=== PATIENT | female | born 1945 | race Caucasian/White ===

== ENCOUNTER 2017-02-04 21:05 | Observation (INO) | payer MEDICARE, OTHER ==
[~2017-02-04] VITALS: Ht 152.4 cm; Wt 53.2 kg
[~2017-02-04 21:05] MED LIST: ABAT250V; ACET325 PO; ASPI81CH PO; CITA20; CITA20 PO; CLON.2 PO; Citalopram HBr20 MG PO; HYDCHL25 PO; LEVO750 PO; LIDO700A20 TOP; LISI5 PO; LOSARTAN POTASS25 MG PO; METCAR500 PO; METO100ER PO; MIRT15ST MM; NICO14TP TOP; NICO21TP TOP; Omeprazole20 M1 PO; PARO10 PO; PREG75; PREG75 PO; PROM25 PO; TRAM50 PO; Ventolin/Prove6.7 GM INH; Zofran Odt8 MG SL; Zofran4 MG PO
[2017-02-04 21:32] LABS: BASOPHILS ABSOLUTE AUTO 0.03 K/mm3 (0.00-0.23); BASOPHILS PERCENT AUTO 0 % (0-2); EOSINOPHILS PERCENT AUTO 0 % (0-6); Hematocrit 35.8 % (33.0-51.0); Hemoglobin 12.1 g/dL (11.5-16.0); IMMATURE GRAN ABSOLUTE AUTO 0.02 K/mm3 (0.00-0.10); IMMATURE GRAN PERCENT AUTO 0 % (0-1); LYMPHOCYTES ABSOLUTE AUTO 1.05 K/mm3 (0.84-5.20); LYMPHOCYTES PERCENT AUTO 10 % (21-46); MONOCYTES ABSOLUTE AUTO 0.57 K/mm3 (0.16-1.47); MONOCYTES PERCENT AUTO 5 % (4-13); Mean Corpuscular HGB 31.3 pg (26.0-34.0); Mean Corpuscular HGB Conc 33.8 g/dL (31.5-36.5); Mean Corpuscular Volume 93 fL (80-100); Mean Platelet Volume 9.4 fL (9.1-12.4); NEUTROPHILS ABSOLUTE AUTO 9.08 K/mm3 (1.96-9.15); NEUTROPHILS PERCENT AUTO 84 % (41-73); Platelet Count 364 K/mm3 (150-400); RDW Coefficient Variation 14.1 % (11.7-14.2); RDW Standard Deviation 47.8 fL (35.1-46.3); Red Blood Cell Count 3.86 M/mm3 (3.80-5.20); White Blood Cell Count 10.75 K/mm3 (4.00-11.30)
[2017-02-04 21:50] LABS: Alanine Aminotransfer (ALT/SGP 25 U/L (12-78); Albumin, Blood 4.1 g/dL (3.4-5.0); Albumin/Globulin Ratio 0.9 (0.8-1.8); Alk Phos 137 U/L (50-136); Anion Gap 21 mmol/L (6-16); Aspartate Aminotrans (AST/SGOT 41 U/L (12-37); Bilirubin, Total 0.6 mg/dL (0.1-1.0); Blood Urea Nitrogen 35 mg/dL (8-24); Bun/Creatinine Ratio 25.2 (12.0-20.0); CO2, Blood 17 mmol/L (21-32); Calcium, Blood 9.7 mg/dL (8.5-10.1); Chloride, Blood 97 mmol/L (98-108); Creatinine, Blood 1.39 mg/dL (0.40-1.00); Globulin, Blood 4.4 g/dL (2.2-4.0); Glomerular Filtration Rate 40 (60-); Glucose, Blood 268 mg/dL (70-99); Potassium, Blood 4.3 mmol/L (3.5-5.5); Sodium, Blood 135 mmol/L (136-145); Total Protein, Blood 8.5 g/dL (6.4-8.2)
[2017-02-04 23:28] LABS: Troponin I <0.015 ng/mL (0.000-0.040)
[2017-02-05] MEDS ORDERED: [UNRECOGNIZED DRUG - CODE] PO (00:54)
[2017-02-05] MEDS ORDERED: [UNRECOGNIZED DRUG - CODE] (00:55)
[2017-02-05] MEDS ORDERED: [UNRECOGNIZED DRUG - CODE] (00:59)
[2017-02-05] MEDS ORDERED: [UNRECOGNIZED DRUG - CODE] PO (01:01)
[2017-02-05] MEDS ORDERED: MIRT30 PO (01:28)
[2017-02-05] MEDS ORDERED: PREG100 PO (01:29)
[2017-02-05] MEDS ORDERED: CLON.1 PO (01:29)
[2017-02-05 04:49] LABS: Hematocrit 29.6 % (33.0-51.0); Hemoglobin 9.9 g/dL (11.5-16.0); Mean Corpuscular HGB 30.8 pg (26.0-34.0); Mean Corpuscular HGB Conc 33.4 g/dL (31.5-36.5); Mean Corpuscular Volume 92 fL (80-100); Mean Platelet Volume 9.5 fL (9.1-12.4); Platelet Count 271 K/mm3 (150-400); RDW Coefficient Variation 13.8 % (11.7-14.2); RDW Standard Deviation 46.6 fL (35.1-46.3); Red Blood Cell Count 3.21 M/mm3 (3.80-5.20); White Blood Cell Count 10.48 K/mm3 (4.00-11.30)
[2017-02-05 05:20] LABS: Magnesium, Blood 1.7 mg/dL (1.6-2.4)
[2017-02-05 05:21] LABS: Bun/Creatinine Ratio 28.6 (12.0-20.0); Creatinine, Blood 1.19 mg/dL (0.40-1.00); Potassium, Blood 4.4 mmol/L (3.5-5.5)
[2017-02-05 05:52] LABS: Calcium, Blood 8.4 mg/dL (8.5-10.1)
[2017-02-06] MEDS ORDERED: HYDCHL25 PO (10:58)
[2017-02-06] MEDS ORDERED: LIDO700A20 TOP (10:59)
[2017-02-06] MEDS ORDERED: ONDA4ODT MM (11:02)
[2017-02-06] MEDS ORDERED: ALUM-MAG HYDRO360 ML PO (11:03)
[2017-02-06 11:16] LABS: U Amphetamine Screen Not Detected; U Barbituate Screen Not Detected; U Benzodiazapine Screen DETECTED; U Buprenorphine Screen Not Detected; U Cannabinoids Screen DETECTED; U Cocaine Screen Not Detected; U Methadone Screen Not Detected; U Methamphetamine Screen Not Detected; U Opiates Screen Not Detected; U Oxycodone Screen Not Detected; U Phencyclidine Screen Not Detected; U Propoxyphene Screen Not Detected
[2017-08-07] MEDS ORDERED: ANORO ELLIPTA1 EACH INH (15:48)
[2017-08-07] MEDS ORDERED: Carafate1 GM/10 ML PO (17:23)
[2017-08-07] MEDS ORDERED: Protonix40 MG PO (17:23)
[2017-08-07] MEDS ORDERED: PROM25 PO (17:23)
[2017-08-07] MEDS ORDERED: Ultram50 MG PO (17:24)
[2017-11-17] MEDS ORDERED: Zofran4 MG PO (08:52)
== END 2017-02-06 12:42 | disposition home or self-care (01) ==
LOC: ER 21:05 → MEDS 21:06 → ER 02-05 01:03 → MEDS 02-05 01:07 → ENPENDDIS 02-06 10:04 → MEDS 02-06 12:42
PROVIDERS: Emergency Medicine; Family Medicine
DX: K52.9 Noninfective gastroenteritis and colitis, unspecified (principal); R73.9 Hyperglycemia, unspecified; E86.0 Dehydration; N17.9 Acute kidney failure, unspecified; E11.9 Type 2 diabetes mellitus without complications; F32.9 Major depressive disorder, single episode, unspecified; F41.9 Anxiety disorder, unspecified; F12.10 Cannabis abuse, uncomplicated; F17.210 Nicotine dependence, cigarettes, uncomplicated; I10 Essential (primary) hypertension; R00.0 Tachycardia, unspecified; J44.9 Chronic obstructive pulmonary disease, unspecified; E78.00 Pure hypercholesterolemia, unspecified; Z90.49 Acquired absence of other specified parts of digestive tract; Z98.890 Other specified postprocedural states; Z88.8 Allergy status to other drugs, medicaments and biological substances; Z88.5 Allergy status to narcotic agent; Z79.891 Long term (current) use of opiate analgesic; Z79.899 Other long term (current) drug therapy
CPT/HCPCS: 36415; 80048; 80053; 82947; 83036; 83605; 83690; 83735; 84100; 84484; 85025; 85027; 93005; 93010; 94640; 94762; 96361; 96372; 96374; 96375; 96376; 99285; G0378; J0360; J1630; J1650; J2060; J2405; J2550; J3411; J3475; J7030; J7042

== ENCOUNTER 2017-04-05 09:55 | Observation (INO) | payer MEDICARE, OTHER ==
[~2017-04-05] VITALS: Ht 152.4 cm; Wt 51.4 kg
[~2017-04-05 09:55] MED LIST changes: +ALUM-MAG HYDRO360 ML PO; +CLON.1 PO; +MIRT30 PO; +ONDA4ODT MM; +PREG100 PO; +[UNRECOGNIZED DRUG - CODE]; +[UNRECOGNIZED DRUG - CODE]; +[UNRECOGNIZED DRUG - CODE] PO; +[UNRECOGNIZED DRUG - CODE] PO
[2017-04-05] MEDS ORDERED: CITA20 PO (10:06)
[2017-04-05] MEDS ORDERED: LISI20 PO (10:06)
[2017-04-05 10:21] LABS: BASOPHILS ABSOLUTE AUTO 0.03 K/mm3 (0.00-0.23); BASOPHILS PERCENT AUTO 0 % (0-2); EOSINOPHILS PERCENT AUTO 0 % (0-6); Hematocrit 30.9 % (33.0-51.0); Hemoglobin 10.1 g/dL (11.5-16.0); IMMATURE GRAN ABSOLUTE AUTO 0.02 K/mm3 (0.00-0.10); IMMATURE GRAN PERCENT AUTO 0 % (0-1); LYMPHOCYTES ABSOLUTE AUTO 0.72 K/mm3 (0.84-5.20); LYMPHOCYTES PERCENT AUTO 10 % (21-46); MONOCYTES ABSOLUTE AUTO 0.73 K/mm3 (0.16-1.47); MONOCYTES PERCENT AUTO 10 % (4-13); Mean Corpuscular HGB 29.4 pg (26.0-34.0); Mean Corpuscular HGB Conc 32.7 g/dL (31.5-36.5); Mean Corpuscular Volume 90 fL (80-100); Mean Platelet Volume 9.6 fL (9.1-12.4); NEUTROPHILS ABSOLUTE AUTO 5.53 K/mm3 (1.96-9.15); NEUTROPHILS PERCENT AUTO 79 % (41-73); Platelet Count 315 K/mm3 (150-400); RDW Coefficient Variation 14.4 % (11.7-14.2); RDW Standard Deviation 46.7 fL (35.1-46.3); Red Blood Cell Count 3.43 M/mm3 (3.80-5.20); White Blood Cell Count 7.03 K/mm3 (4.00-11.30)
[2017-04-05 10:40] LABS: Albumin, Blood 3.3 g/dL (3.4-5.0); Albumin/Globulin Ratio 0.9 (0.8-1.8); Bilirubin, Total 0.6 mg/dL (0.1-1.0); Bun/Creatinine Ratio 14.7 (12.0-20.0); Calcium, Blood 8.4 mg/dL (8.5-10.1); Creatinine, Blood 1.09 mg/dL (0.40-1.00); Globulin, Blood 3.6 g/dL (2.2-4.0); Potassium, Blood 3.3 mmol/L (3.5-5.5); Total Protein, Blood 6.9 g/dL (6.4-8.2)
[2017-04-05 11:16] LABS: International Normalized Ratio 1.17; Prothrombin Time Results 12.2 Sec (9.7-11.5)
[2017-04-05 16:02] LABS: Hematocrit 30.8 % (33.0-51.0)
[2017-04-05 20:54] LABS: Hematocrit 30.1 % (33.0-51.0); Hemoglobin 9.7 g/dL (11.5-16.0)
[2017-04-06 05:14] LABS: Alanine Aminotransfer (ALT/SGP 20 U/L (12-78); Albumin, Blood 3.3 g/dL (3.4-5.0); Alk Phos 108 U/L (50-136); Anion Gap 12 mmol/L (6-16); Aspartate Aminotrans (AST/SGOT 25 U/L (12-37); Bilirubin, Total 0.5 mg/dL (0.1-1.0); Blood Urea Nitrogen 9 mg/dL (8-24); Bun/Creatinine Ratio 9.5 (12.0-20.0); CO2, Blood 23 mmol/L (21-32); Calcium, Blood 7.8 mg/dL (8.5-10.1); Chloride, Blood 108 mmol/L (98-108); Creatinine, Blood 0.95 mg/dL (0.40-1.00); Globulin, Blood 3.4 g/dL (2.2-4.0); Glomerular Filtration Rate >60 (60-); Glucose, Blood 68 mg/dL (70-99); Magnesium, Blood 1.3 mg/dL (1.6-2.4); Sodium, Blood 143 mmol/L (136-145); Total Protein, Blood 6.7 g/dL (6.4-8.2)
[2017-04-06 05:40] LABS: BASOPHILS ABSOLUTE AUTO 0.04 K/mm3 (0.00-0.23); BASOPHILS PERCENT AUTO 1 % (0-2); EOSINOPHILS ABSOLUTE AUTO 0.04 K/mm3 (0.00-0.68); EOSINOPHILS PERCENT AUTO 1 % (0-6); Hemoglobin 9.5 g/dL (11.5-16.0); IMMATURE GRAN ABSOLUTE AUTO 0.02 K/mm3 (0.00-0.10); IMMATURE GRAN PERCENT AUTO 0 % (0-1); LYMPHOCYTES ABSOLUTE AUTO 3.46 K/mm3 (0.84-5.20); LYMPHOCYTES PERCENT AUTO 44 % (21-46); MONOCYTES ABSOLUTE AUTO 0.66 K/mm3 (0.16-1.47); MONOCYTES PERCENT AUTO 8 % (4-13); Mean Corpuscular HGB 29.6 pg (26.0-34.0); Mean Corpuscular HGB Conc 31.7 g/dL (31.5-36.5); Mean Platelet Volume 9.9 fL (9.1-12.4); NEUTROPHILS ABSOLUTE AUTO 3.71 K/mm3 (1.96-9.15); NEUTROPHILS PERCENT AUTO 47 % (41-73); Platelet Count 240 K/mm3 (150-400); RDW Coefficient Variation 14.9 % (11.7-14.2); RDW Standard Deviation 50.9 fL (35.1-46.3); Red Blood Cell Count 3.21 M/mm3 (3.80-5.20); White Blood Cell Count 7.93 K/mm3 (4.00-11.30)
[2017-04-06 05:42] LABS: Mean Corpuscular Volume 94 fL (80-100)
[2017-04-06] MEDS ORDERED: MAGOXI400 PO (14:21)
[2017-04-06] MEDS ORDERED: POTCHL10ER PO (14:22)
[2017-04-06] MEDS ORDERED: PANT40 PO (14:22)
[2017-08-07] MEDS ORDERED: ANORO ELLIPTA1 EACH INH (15:48)
[2017-08-07] MEDS ORDERED: Protonix40 MG PO (17:23)
[2017-08-07] MEDS ORDERED: Carafate1 GM/10 ML PO (17:23)
[2017-08-07] MEDS ORDERED: PROM25 PO (17:23)
[2017-08-07] MEDS ORDERED: Ultram50 MG PO (17:24)
[2017-11-17] MEDS ORDERED: Zofran4 MG PO (08:52)
== END 2017-04-06 15:26 | disposition home or self-care (01) ==
LOC: ER 09:55 → MEDS 09:56 → ER 13:49 → MEDS 13:49 → ENPENDDIS 04-06 10:00 → MEDS 04-06 15:26
PROVIDERS: Emergency Medicine; Internal Medicine; Internal Medicine Gastroenterology
PROC: 0DB68ZX Excision of Stomach, Via Natural or Artificial Opening Endoscopic, Diagnostic (ICD-10-PCS; principal; 2017-04-06 09:00)
DX: K92.1 Melena (principal); K70.9 Alcoholic liver disease, unspecified; I10 Essential (primary) hypertension; E87.6 Hypokalemia; E86.0 Dehydration; J43.9 Emphysema, unspecified; F10.10 Alcohol abuse, uncomplicated; M79.7 Fibromyalgia; E78.5 Hyperlipidemia, unspecified; F17.200 Nicotine dependence, unspecified, uncomplicated; K85.90 Acute pancreatitis without necrosis or infection, unspecified; Z79.899 Other long term (current) drug therapy; Z88.5 Allergy status to narcotic agent; Z88.8 Allergy status to other drugs, medicaments and biological substances; Z90.49 Acquired absence of other specified parts of digestive tract; Z98.890 Other specified postprocedural states
CPT/HCPCS: 36415; 74177; 80053; 82272; 83690; 83735; 85014; 85018; 85025; 85610; 85730; 86850; 86900; 86901; 88305; 88342; 93005; 93010; 96361; 96374; 96375; 96376; 99285; C9113; G0378; J1170; J2405; J3010; J3475; J3480; J7030; J7040; J7120; Q9967

== ENCOUNTER 2017-05-10 12:17 | Observation (INO) | payer MEDICARE ==
[~2017-05-10] VITALS: Ht 154.9 cm; Wt 50.8 kg
[~2017-05-10 12:17] MED LIST changes: +LISI20 PO; +MAGOXI400 PO; +PANT40 PO; +POTCHL10ER PO
[2017-05-10 12:48] LABS: BASOPHILS ABSOLUTE AUTO 0.02 K/mm3 (0.00-0.23); BASOPHILS PERCENT AUTO 0 % (0-2); EOSINOPHILS PERCENT AUTO 0 % (0-6); Hematocrit 36.3 % (33.0-51.0); Hemoglobin 11.4 g/dL (11.5-16.0); IMMATURE GRAN ABSOLUTE AUTO 0.05 K/mm3 (0.00-0.10); IMMATURE GRAN PERCENT AUTO 1 % (0-1); LYMPHOCYTES PERCENT AUTO 12 % (21-46); MONOCYTES ABSOLUTE AUTO 0.64 K/mm3 (0.16-1.47); MONOCYTES PERCENT AUTO 7 % (4-13); Mean Corpuscular HGB 28.6 pg (26.0-34.0); Mean Corpuscular HGB Conc 31.4 g/dL (31.5-36.5); Mean Corpuscular Volume 91 fL (80-100); Mean Platelet Volume 10.5 fL (9.1-12.4); NEUTROPHILS ABSOLUTE AUTO 7.35 K/mm3 (1.96-9.15); NEUTROPHILS PERCENT AUTO 80 % (41-73); Platelet Count 318 K/mm3 (150-400); RDW Coefficient Variation 15.1 % (11.7-14.2); RDW Standard Deviation 50.3 fL (35.1-46.3); Red Blood Cell Count 3.98 M/mm3 (3.80-5.20); White Blood Cell Count 9.16 K/mm3 (4.00-11.30)
[2017-05-10 13:09] LABS: Alanine Aminotransfer (ALT/SGP 15 U/L (12-78); Albumin, Blood 3.9 g/dL (3.4-5.0); Albumin/Globulin Ratio 0.9 (0.8-1.8); Alk Phos 97 U/L (50-136); Anion Gap 15 mmol/L (6-16); Aspartate Aminotrans (AST/SGOT 22 U/L (12-37); Bilirubin, Total 0.9 mg/dL (0.1-1.0); Blood Urea Nitrogen 37 mg/dL (8-24); Bun/Creatinine Ratio 29.4 (12.0-20.0); CO2, Blood 22 mmol/L (21-32); Calcium, Blood 9.1 mg/dL (8.5-10.1); Chloride, Blood 101 mmol/L (98-108); Creatinine, Blood 1.26 mg/dL (0.40-1.00); Globulin, Blood 4.2 g/dL (2.2-4.0); Glomerular Filtration Rate 45 (60-); Glucose, Blood 158 mg/dL (70-99); Potassium, Blood 3.7 mmol/L (3.5-5.5); Sodium, Blood 138 mmol/L (136-145); Total Protein, Blood 8.1 g/dL (6.4-8.2)
[2017-05-10 13:27] LABS: Ethanol (Alcohol), Blood, Med <3 mg/dL
[2017-05-10 13:28] LABS: Source, Urine Clean Catch
[2017-05-10 13:32] LABS: Appearance, Urine Clear (Clear); Blood, Urine 1+ (Neg); Color, Urine Yellow (P-Yellow); Glucose Qualitative, Urine Neg (Neg); Ketones, Urine 3+ (Neg); Leukocyte Esterase, Urine Neg (Neg); Nitrite, Urine Neg (Neg); Protein, Urine 3+ (Neg); Specific Gravity, Urine 1.025 (1.003-1.022); Urobilinogen, Urine 1+ (Normal)
[2017-05-10 13:38] LABS: Bilirubin, Urine 1+ (Neg)
[2017-05-10 13:39] LABS: Bacteria Few /hpf; Red Blood Cells, Urine 0-2 /hpf (0-2); Squamous Epithelial Cells Many /hpf (Few); White Blood Cells, Urine Not Seen /hpf (0-5)
[2017-05-10 13:43] LABS: Troponin I <0.015 ng/mL (0.000-0.040)
[2017-05-11 05:31] LABS: Bun/Creatinine Ratio 30.4 (12.0-20.0); Calcium, Blood 8.2 mg/dL (8.5-10.1); Creatinine, Blood 1.15 mg/dL (0.40-1.00)
[2017-05-12 04:54] LABS: BASOPHILS ABSOLUTE AUTO 0.06 K/mm3 (0.00-0.23); BASOPHILS PERCENT AUTO 1 % (0-2); EOSINOPHILS ABSOLUTE AUTO 0.32 K/mm3 (0.00-0.68); EOSINOPHILS PERCENT AUTO 3 % (0-6); Hematocrit 31.6 % (33.0-51.0); IMMATURE GRAN ABSOLUTE AUTO 0.06 K/mm3 (0.00-0.10); IMMATURE GRAN PERCENT AUTO 1 % (0-1); LYMPHOCYTES ABSOLUTE AUTO 3.99 K/mm3 (0.84-5.20); LYMPHOCYTES PERCENT AUTO 33 % (21-46); MONOCYTES ABSOLUTE AUTO 0.94 K/mm3 (0.16-1.47); MONOCYTES PERCENT AUTO 8 % (4-13); Mean Corpuscular HGB 28.5 pg (26.0-34.0); Mean Corpuscular HGB Conc 31.6 g/dL (31.5-36.5); Mean Corpuscular Volume 90 fL (80-100); NEUTROPHILS ABSOLUTE AUTO 6.84 K/mm3 (1.96-9.15); NEUTROPHILS PERCENT AUTO 56 % (41-73); Platelet Count 252 K/mm3 (150-400); RDW Coefficient Variation 15.6 % (11.7-14.2); RDW Standard Deviation 50.7 fL (35.1-46.3); Red Blood Cell Count 3.51 M/mm3 (3.80-5.20); White Blood Cell Count 12.21 K/mm3 (4.00-11.30)
[2017-05-12 05:15] LABS: Bun/Creatinine Ratio 24.4 (12.0-20.0); Calcium, Blood 7.9 mg/dL (8.5-10.1); Creatinine, Blood 1.23 mg/dL (0.40-1.00); Magnesium, Blood 1.4 mg/dL (1.6-2.4); Potassium, Blood 3.4 mmol/L (3.5-5.5)
[2017-05-12] MEDS ORDERED: Donnatal E16.2 MG/5 (11:12)
[2017-05-12] MEDS ORDERED: Lyrica100 MG PO (11:20)
[2017-05-12] MEDS ORDERED: POTCHL10ER PO (11:21)
[2017-05-12] MEDS ORDERED: ALBU90OI INH (11:22)
[2017-05-12] MEDS ORDERED: PANT40 PO (11:28)
[2017-05-12] MEDS ORDERED: TRAM50 (11:30)
[2017-05-12] MEDS ORDERED: Zofran Odt4 MG PO (11:32)
[2017-05-12] MEDS ORDERED: MAGOXI400 PO (11:34)
[2017-05-12] MEDS ORDERED: TIOT18 INH (11:36)
== END 2017-05-12 16:41 | disposition home or self-care (01) ==
LOC: ER 12:17 → MEDS 12:18 → ENPENDDIS 05-12 09:00 → MEDS 05-12 16:41
PROVIDERS: Emergency Medicine; Internal Medicine
DX: E86.0 Dehydration (principal); N28.9 Disorder of kidney and ureter, unspecified; I16.0 Hypertensive urgency; E87.6 Hypokalemia; F10.10 Alcohol abuse, uncomplicated; K74.60 Unspecified cirrhosis of liver; F17.210 Nicotine dependence, cigarettes, uncomplicated; E78.00 Pure hypercholesterolemia, unspecified; R19.7 Diarrhea, unspecified; I10 Essential (primary) hypertension; F32.9 Major depressive disorder, single episode, unspecified; G89.29 Other chronic pain; M54.9 Dorsalgia, unspecified; M79.7 Fibromyalgia; K21.9 Gastro-esophageal reflux disease without esophagitis; J44.9 Chronic obstructive pulmonary disease, unspecified; E03.9 Hypothyroidism, unspecified; M19.90 Unspecified osteoarthritis, unspecified site; Z79.899 Other long term (current) drug therapy; Z82.49 Family history of ischemic heart disease and other diseases of the circulatory system; Z88.5 Allergy status to narcotic agent; Z88.8 Allergy status to other drugs, medicaments and biological substances; Z88.6 Allergy status to analgesic agent; Z87.11 Personal history of peptic ulcer disease; Y90.0 Blood alcohol level of less than 20 mg/100 ml
CPT/HCPCS: 36415; 71046; 80048; 80053; 81001; 82105; 82947; 83690; 83735; 84484; 85025; 94640; 94760; 96361; 96365; 96366; 96367; 96374; 96375; 96376; 97161; 97165; 97535; 99285; G0378; G0480; G8978; G8979; G8987; G8988; G8989; J2060; J2405; J3475; J7030; J7060; P9612

== ENCOUNTER 2017-09-17 07:40 | Inpatient (IN) | payer MEDICARE, OTHER ==
[~2017-09-17] VITALS: Ht 152.4 cm; Wt 50.6 kg
[~2017-09-17 07:40] MED LIST changes: +ALBU90OI INH; +ANORO ELLIPTA1 EACH INH; +Carafate1 GM/10 ML PO; +Donnatal E16.2 MG/5; +Lyrica100 MG PO; +Protonix40 MG PO; +TIOT18 INH; +TRAM50; +Ultram50 MG PO; +Zofran Odt4 MG PO
[2017-09-17 08:09] LABS: BASOPHILS ABSOLUTE AUTO 0.05 K/mm3 (0.00-0.23); BASOPHILS PERCENT AUTO 1 % (0-2); EOSINOPHILS ABSOLUTE AUTO 0.03 K/mm3 (0.00-0.68); EOSINOPHILS PERCENT AUTO 0 % (0-6); Hematocrit 35.4 % (33.0-51.0); Hemoglobin 11.6 g/dL (11.5-16.0); IMMATURE GRAN ABSOLUTE AUTO 0.03 K/mm3 (0.00-0.10); IMMATURE GRAN PERCENT AUTO 0 % (0-1); LYMPHOCYTES PERCENT AUTO 26 % (21-46); MONOCYTES ABSOLUTE AUTO 0.66 K/mm3 (0.16-1.47); MONOCYTES PERCENT AUTO 7 % (4-13); Mean Corpuscular HGB Conc 32.8 g/dL (31.5-36.5); Mean Corpuscular Volume 89 fL (80-100); Mean Platelet Volume 9.9 fL (9.1-12.4); NEUTROPHILS ABSOLUTE AUTO 5.82 K/mm3 (1.96-9.15); NEUTROPHILS PERCENT AUTO 66 % (41-73); Platelet Count 390 K/mm3 (150-400); RDW Coefficient Variation 16.8 % (11.7-14.2); RDW Standard Deviation 54.7 fL (35.1-46.3); White Blood Cell Count 8.89 K/mm3 (4.00-11.30)
[2017-09-17 08:26] LABS: Alanine Aminotransfer (ALT/SGP 22 U/L (12-78); Albumin, Blood 3.3 g/dL (3.4-5.0); Albumin/Globulin Ratio 0.7 (0.8-1.8); Alk Phos 134 U/L (50-136); Anion Gap 11 mmol/L (6-16); Aspartate Aminotrans (AST/SGOT 51 U/L (12-37); Bilirubin, Total 0.8 mg/dL (0.1-1.0); Blood Urea Nitrogen 12 mg/dL (8-24); Bun/Creatinine Ratio 10.6 (12.0-20.0); CO2, Blood 23 mmol/L (21-32); Calcium, Blood 7.8 mg/dL (8.5-10.1); Chloride, Blood 102 mmol/L (98-108); Creatinine, Blood 1.13 mg/dL (0.40-1.00); Globulin, Blood 4.6 g/dL (2.2-4.0); Glomerular Filtration Rate 51 (60-); Glucose, Blood 104 mg/dL (70-99); Potassium, Blood 4.8 mmol/L (3.5-5.5); Sodium, Blood 136 mmol/L (136-145); Total Protein, Blood 7.9 g/dL (6.4-8.2); Troponin I <0.015 ng/mL (0.000-0.040)
[2017-09-17 11:47] LABS: Source, Urine Clean Catch
[2017-09-17 11:54] LABS: Bilirubin, Urine Neg (Neg); Blood, Urine Neg (Neg); Glucose Qualitative, Urine Neg (Neg); Ketones, Urine 2+ (Neg); Leukocyte Esterase, Urine 1+ (Neg); Nitrite, Urine Neg (Neg); Protein, Urine Neg (Neg); Specific Gravity, Urine 1.005 (1.003-1.022); Urobilinogen, Urine NORM (Normal)
[2017-09-17 12:03] LABS: Appearance, Urine Clear (Clear); Bacteria Few /hpf; Color, Urine Yellow (P-Yellow); Red Blood Cells, Urine 0-2 /hpf (0-2); Squamous Epithelial Cells Few /hpf (Few); White Blood Cells, Urine 0-2 /hpf (0-5)
[2017-09-17] MEDS ORDERED: Prinivil10 MG PO (12:24)
[2017-09-17] MEDS ORDERED: METCAR500 PO (12:24)
[2017-09-17] MEDS ORDERED: METO50ER PO (12:25)
[2017-09-17] MEDS ORDERED: BUPR75 PO (12:29)
[2017-09-17 14:44] LABS: Ethanol (Alcohol), Blood, Med <3 mg/dL
[2017-09-18 04:11] LABS: Hematocrit 33.5 % (33.0-51.0); Hemoglobin 10.7 g/dL (11.5-16.0); Mean Corpuscular HGB 28.8 pg (26.0-34.0); Mean Corpuscular HGB Conc 31.9 g/dL (31.5-36.5); Mean Corpuscular Volume 90 fL (80-100); Mean Platelet Volume 10.1 fL (9.1-12.4); Platelet Count 348 K/mm3 (150-400); RDW Coefficient Variation 17.2 % (11.7-14.2); RDW Standard Deviation 56.2 fL (35.1-46.3); Red Blood Cell Count 3.72 M/mm3 (3.80-5.20); White Blood Cell Count 9.24 K/mm3 (4.00-11.30)
[2017-09-18 04:48] LABS: Bun/Creatinine Ratio 11.1 (12.0-20.0); Calcium, Blood 6.9 mg/dL (8.5-10.1); Creatinine, Blood 1.17 mg/dL (0.40-1.00); Potassium, Blood 3.5 mmol/L (3.5-5.5)
[2017-09-18 11:06] LABS: Adenovirus F 40/41 Not Detected (NOT DETECT); Astrovirus Not Detected (NOT DETECT); Campylobacter Sp Not Detected (NOT DETECT); Cryptosporidium Not Detected (NOT DETECT); Cyclospora Cayetanensis Not Detected (NOT DETECT); E. Coli O157 Not Detected (NOT DETECT); Entamoeba Histolytica Not Detected (NOT DETECT); Enteroaggregative E. coli-EAEC Not Detected (NOT DETECT); Enteropathogenic E. coli-EPEC Not Detected (NOT DETECT); Enterotoxigenic E. coli-ETEC Not Detected (NOT DETECT); Giardia Lamblia Not Detected (NOT DETECT); Norovirus GI/GII Not Detected (NOT DETECT); Plesiomonas Shigelloides Not Detected (NOT DETECT); Rotavirus A Not Detected (NOT DETECT); Salmonella Sp Not Detected (NOT DETECT); Sapovirus Not Detected (NOT DETECT); Shiga Toxin-prod E. coli-STEC Not Detected (NOT DETECT); Shigella/Enteroin E. coli-EIEC Not Detected (NOT DETECT); Vibrio Cholerae Not Detected (NOT DETECT); Vibrio Sp Not Detected (NOT DETECT); Yersinia Enterocolitica Not Detected (NOT DETECT)
[2017-09-19 05:51] LABS: Hematocrit 33.7 % (33.0-51.0); Mean Corpuscular HGB 29.8 pg (26.0-34.0); Mean Corpuscular HGB Conc 32.6 g/dL (31.5-36.5); Mean Corpuscular Volume 91 fL (80-100); Mean Platelet Volume 9.3 fL (9.1-12.4); Platelet Count 348 K/mm3 (150-400); RDW Coefficient Variation 16.9 % (11.7-14.2); RDW Standard Deviation 56.9 fL (35.1-46.3); Red Blood Cell Count 3.69 M/mm3 (3.80-5.20); White Blood Cell Count 8.16 K/mm3 (4.00-11.30)
[2017-09-19 06:09] LABS: Anion Gap 12 mmol/L (6-16); Blood Urea Nitrogen 10 mg/dL (8-24); Bun/Creatinine Ratio 10.5 (12.0-20.0); CO2, Blood 20 mmol/L (21-32); Calcium, Blood 6.6 mg/dL (8.5-10.1); Chloride, Blood 108 mmol/L (98-108); Creatinine, Blood 0.95 mg/dL (0.40-1.00); Glomerular Filtration Rate >60 (60-); Glucose, Blood 101 mg/dL (70-99); Potassium, Blood 3.9 mmol/L (3.5-5.5); Sodium, Blood 140 mmol/L (136-145)
[2017-09-20 05:12] LABS: Hematocrit 31.7 % (33.0-51.0); Hemoglobin 10.2 g/dL (11.5-16.0); Mean Corpuscular HGB 29.4 pg (26.0-34.0); Mean Corpuscular HGB Conc 32.2 g/dL (31.5-36.5); Mean Corpuscular Volume 91 fL (80-100); Mean Platelet Volume 9.6 fL (9.1-12.4); Platelet Count 332 K/mm3 (150-400); RDW Coefficient Variation 17.1 % (11.7-14.2); Red Blood Cell Count 3.47 M/mm3 (3.80-5.20)
[2017-09-20 05:29] LABS: Alanine Aminotransfer (ALT/SGP 17 U/L (12-78); Albumin, Blood 2.9 g/dL (3.4-5.0); Albumin/Globulin Ratio 0.8 (0.8-1.8); Alk Phos 86 U/L (50-136); Anion Gap 10 mmol/L (6-16); Aspartate Aminotrans (AST/SGOT 19 U/L (12-37); Bilirubin, Total 0.4 mg/dL (0.1-1.0); Blood Urea Nitrogen 18 mg/dL (8-24); Bun/Creatinine Ratio 19.5 (12.0-20.0); CO2, Blood 22 mmol/L (21-32); Chloride, Blood 108 mmol/L (98-108); Creatinine, Blood 0.92 mg/dL (0.40-1.00); Globulin, Blood 3.8 g/dL (2.2-4.0); Glomerular Filtration Rate >60 (60-); Glucose, Blood 86 mg/dL (70-99); Potassium, Blood 3.4 mmol/L (3.5-5.5); Sodium, Blood 140 mmol/L (136-145); Total Protein, Blood 6.7 g/dL (6.4-8.2)
[2017-09-21 04:50] LABS: Hematocrit 32.8 % (33.0-51.0); Hemoglobin 10.4 g/dL (11.5-16.0); Mean Corpuscular HGB 28.5 pg (26.0-34.0); Mean Corpuscular HGB Conc 31.7 g/dL (31.5-36.5); Mean Corpuscular Volume 90 fL (80-100); Mean Platelet Volume 9.8 fL (9.1-12.4); Platelet Count 328 K/mm3 (150-400); RDW Coefficient Variation 17.2 % (11.7-14.2); RDW Standard Deviation 55.7 fL (35.1-46.3); Red Blood Cell Count 3.65 M/mm3 (3.80-5.20); White Blood Cell Count 9.73 K/mm3 (4.00-11.30)
[2017-09-21 05:06] LABS: Anion Gap 10 mmol/L (6-16); Blood Urea Nitrogen 16 mg/dL (8-24); Bun/Creatinine Ratio 19.7 (12.0-20.0); CO2, Blood 22 mmol/L (21-32); Calcium, Blood 8.5 mg/dL (8.5-10.1); Chloride, Blood 110 mmol/L (98-108); Creatinine, Blood 0.81 mg/dL (0.40-1.00); Glomerular Filtration Rate >60 (60-); Glucose, Blood 78 mg/dL (70-99); Potassium, Blood 3.7 mmol/L (3.5-5.5); Sodium, Blood 142 mmol/L (136-145)
[2017-09-22 05:09] LABS: BASOPHILS ABSOLUTE AUTO 0.04 K/mm3 (0.00-0.23); BASOPHILS PERCENT AUTO 0 % (0-2); EOSINOPHILS ABSOLUTE AUTO 0.35 K/mm3 (0.00-0.68); EOSINOPHILS PERCENT AUTO 4 % (0-6); Hematocrit 32.7 % (33.0-51.0); Hemoglobin 10.5 g/dL (11.5-16.0); IMMATURE GRAN ABSOLUTE AUTO 0.04 K/mm3 (0.00-0.10); IMMATURE GRAN PERCENT AUTO 0 % (0-1); LYMPHOCYTES ABSOLUTE AUTO 3.84 K/mm3 (0.84-5.20); LYMPHOCYTES PERCENT AUTO 40 % (21-46); MONOCYTES PERCENT AUTO 8 % (4-13); Mean Corpuscular HGB 30.1 pg (26.0-34.0); Mean Corpuscular HGB Conc 32.1 g/dL (31.5-36.5); Mean Platelet Volume 9.5 fL (9.1-12.4); NEUTROPHILS ABSOLUTE AUTO 4.61 K/mm3 (1.96-9.15); NEUTROPHILS PERCENT AUTO 48 % (41-73); Platelet Count 314 K/mm3 (150-400); RDW Coefficient Variation 17.7 % (11.7-14.2); RDW Standard Deviation 60.3 fL (35.1-46.3); Red Blood Cell Count 3.49 M/mm3 (3.80-5.20); White Blood Cell Count 9.68 K/mm3 (4.00-11.30)
[2017-09-22 05:19] LABS: Mean Corpuscular Volume 94 fL (80-100)
[2017-09-22 05:27] LABS: Alanine Aminotransfer (ALT/SGP 23 U/L (12-78); Albumin, Blood 2.9 g/dL (3.4-5.0); Albumin/Globulin Ratio 0.8 (0.8-1.8); Alk Phos 77 U/L (50-136); Anion Gap 10 mmol/L (6-16); Aspartate Aminotrans (AST/SGOT 31 U/L (12-37); Bilirubin, Total 0.5 mg/dL (0.1-1.0); Blood Urea Nitrogen 13 mg/dL (8-24); Bun/Creatinine Ratio 13.9 (12.0-20.0); CO2, Blood 22 mmol/L (21-32); Calcium, Blood 7.9 mg/dL (8.5-10.1); Chloride, Blood 109 mmol/L (98-108); Creatinine, Blood 0.94 mg/dL (0.40-1.00); Globulin, Blood 3.7 g/dL (2.2-4.0); Glomerular Filtration Rate >60 (60-); Glucose, Blood 70 mg/dL (70-99); Magnesium, Blood 1.8 mg/dL (1.6-2.4); Potassium, Blood 3.6 mmol/L (3.5-5.5); Sodium, Blood 141 mmol/L (136-145); Total Protein, Blood 6.6 g/dL (6.4-8.2)
[2017-09-23 05:19] LABS: BASOPHILS ABSOLUTE AUTO 0.05 K/mm3 (0.00-0.23); BASOPHILS PERCENT AUTO 0 % (0-2); EOSINOPHILS ABSOLUTE AUTO 0.51 K/mm3 (0.00-0.68); EOSINOPHILS PERCENT AUTO 5 % (0-6); Hematocrit 33.6 % (33.0-51.0); Hemoglobin 10.6 g/dL (11.5-16.0); IMMATURE GRAN ABSOLUTE AUTO 0.06 K/mm3 (0.00-0.10); IMMATURE GRAN PERCENT AUTO 1 % (0-1); LYMPHOCYTES ABSOLUTE AUTO 3.74 K/mm3 (0.84-5.20); LYMPHOCYTES PERCENT AUTO 33 % (21-46); MONOCYTES ABSOLUTE AUTO 0.97 K/mm3 (0.16-1.47); MONOCYTES PERCENT AUTO 9 % (4-13); Mean Corpuscular HGB 29.2 pg (26.0-34.0); Mean Corpuscular HGB Conc 31.5 g/dL (31.5-36.5); Mean Corpuscular Volume 93 fL (80-100); Mean Platelet Volume 9.8 fL (9.1-12.4); NEUTROPHILS ABSOLUTE AUTO 5.89 K/mm3 (1.96-9.15); NEUTROPHILS PERCENT AUTO 53 % (41-73); Platelet Count 357 K/mm3 (150-400); RDW Coefficient Variation 17.7 % (11.7-14.2); RDW Standard Deviation 58.8 fL (35.1-46.3); Red Blood Cell Count 3.63 M/mm3 (3.80-5.20); White Blood Cell Count 11.22 K/mm3 (4.00-11.30)
[2017-09-23 05:48] LABS: Albumin, Blood 2.7 g/dL (3.4-5.0); Albumin/Globulin Ratio 0.7 (0.8-1.8); Bilirubin, Total 0.2 mg/dL (0.1-1.0); Bun/Creatinine Ratio 20.2 (12.0-20.0); Calcium, Blood 9.7 mg/dL (8.5-10.1); Creatinine, Blood 1.19 mg/dL (0.40-1.00); Globulin, Blood 3.7 g/dL (2.2-4.0); Potassium, Blood 3.6 mmol/L (3.5-5.5); Total Protein, Blood 6.4 g/dL (6.4-8.2)
[2017-09-23] MEDS ORDERED: AMLO5 PO (14:21)
[2017-09-23] MEDS ORDERED: METO5A PO (14:22)
[2017-09-23] MEDS ORDERED: LEVSOD50 PO (14:22)
[2017-09-23] MEDS ORDERED: NICO21TP TOP (14:23)
[2017-09-23] MEDS ORDERED: PROM25 PO (14:24)
== END 2017-09-23 15:28 | disposition home or self-care (01) | DRG 683 ==
LOC: ER 07:40 → ICUW 13:56 → ICUE 15:06 → MEDS 09-20 01:23 → ENPENDDIS 09-23 13:19 → MEDS 09-23 15:28
PROVIDERS: Emergency Medicine; Internal Medicine
DX: N17.9 Acute kidney failure, unspecified (principal); I16.1 Hypertensive emergency; F12.988 Cannabis use, unspecified with other cannabis-induced disorder; D30.01 Benign neoplasm of right kidney; I10 Essential (primary) hypertension; E78.00 Pure hypercholesterolemia, unspecified; F17.210 Nicotine dependence, cigarettes, uncomplicated; R11.2 Nausea with vomiting, unspecified; I73.9 Peripheral vascular disease, unspecified; M79.7 Fibromyalgia; J43.9 Emphysema, unspecified; M19.90 Unspecified osteoarthritis, unspecified site; I25.2 Old myocardial infarction; E03.9 Hypothyroidism, unspecified; K74.60 Unspecified cirrhosis of liver
CPT/HCPCS: 36415; 51702; 51703; 71046; 74177; 80048; 80053; 81001; 82105; 83690; 83735; 83880; 84443; 84484; 85025; 85027; 85651; 87086; 87507; 93005; 93010; 93306; 94640; 94760; 96361; 96374; 96375; 96376; 99285-25; C9113; G0480; J0360; J1100; J1200; J1650; J2060; J2405; J2550; J2765; J3411; J7030; Q9967

== ENCOUNTER 2018-02-17 12:40 | Emergency (ER) | payer MEDICARE, OTHER ==
[~2018-02-17] VITALS: Ht 165.1 cm; Wt 54.4 kg
[~2018-02-17 12:40] MED LIST changes: +AMLO5 PO; +BUPR75 PO; +LEVSOD50 PO; +METO50ER PO; +METO5A PO; +Prinivil10 MG PO
[2018-02-17 14:01] LABS: Albumin/Globulin Ratio 0.9 (0.8-1.8); Bilirubin, Total 0.7 mg/dL (0.1-1.0); Bun/Creatinine Ratio 15.7 (12.0-20.0); Calcium, Blood 9.1 mg/dL (8.5-10.1); Creatinine, Blood 1.53 mg/dL (0.40-1.00); Globulin, Blood 4.6 g/dL (2.2-4.0); Magnesium, Blood 1.6 mg/dL (1.6-2.4); Potassium, Blood 2.8 mmol/L (3.5-5.5); Total Protein, Blood 8.6 g/dL (6.4-8.2)
[2018-02-17 14:08] LABS: BASOPHILS ABSOLUTE AUTO 0.06 K/mm3 (0.00-0.23); BASOPHILS PERCENT AUTO 1 % (0-2); EOSINOPHILS ABSOLUTE AUTO 0.06 K/mm3 (0.00-0.68); EOSINOPHILS PERCENT AUTO 1 % (0-6); Hematocrit 44.9 % (33.0-51.0); Hemoglobin 14.9 g/dL (11.5-16.0); IMMATURE GRAN ABSOLUTE AUTO 0.04 K/mm3 (0.00-0.10); IMMATURE GRAN PERCENT AUTO 0 % (0-1); LYMPHOCYTES ABSOLUTE AUTO 2.14 K/mm3 (0.84-5.20); LYMPHOCYTES PERCENT AUTO 21 % (21-46); MONOCYTES ABSOLUTE AUTO 1.08 K/mm3 (0.16-1.47); MONOCYTES PERCENT AUTO 11 % (4-13); Mean Corpuscular HGB 28.7 pg (26.0-34.0); Mean Corpuscular HGB Conc 33.2 g/dL (31.5-36.5); Mean Corpuscular Volume 87 fL (80-100); Mean Platelet Volume 9.7 fL (9.1-12.4); NEUTROPHILS PERCENT AUTO 67 % (41-73); Platelet Count 471 K/mm3 (150-400); RDW Coefficient Variation 15.7 % (11.7-14.2); RDW Standard Deviation 49.2 fL (35.1-46.3); Red Blood Cell Count 5.19 M/mm3 (3.80-5.20); White Blood Cell Count 10.28 K/mm3 (4.00-11.30)
[2018-02-17] MEDS ORDERED: Zofran4 MG PO (14:45)
== END 2018-02-17 16:33 | disposition home or self-care (01) ==
LOC: ER 12:40
PROVIDERS: Emergency Medicine
DX: G43.A0 Cyclical vomiting, in migraine, not intractable (principal); R10.9 Unspecified abdominal pain; G89.29 Other chronic pain; F41.9 Anxiety disorder, unspecified; Z88.5 Allergy status to narcotic agent; Z88.8 Allergy status to other drugs, medicaments and biological substances; Z79.899 Other long term (current) drug therapy; I12.9 Hypertensive chronic kidney disease with stage 1 through stage 4 chronic kidney disease, or unspecified chronic kidney disease; N18.9 Chronic kidney disease, unspecified; E78.00 Pure hypercholesterolemia, unspecified; J44.9 Chronic obstructive pulmonary disease, unspecified; F17.210 Nicotine dependence, cigarettes, uncomplicated
CPT/HCPCS: 36415; 74022; 80053; 83690; 83735; 85025; 93005; 93010; 96361; 96374; 96375; 96376; 99284-25; C9113; J2405; J7030

== ENCOUNTER → 2018-03-30 | Outpatient (CLI) | payer MEDICARE, OTHER ==
[~2018-03-30] MED LIST changes: +METO25ER PO; +PREG25 PO
== END | disposition home or self-care (01) ==
LOC: LAB SHORT 11:23 → LAB 11:23
DX: N39.0 Urinary tract infection, site not specified (principal)
CPT/HCPCS: 87077; 87086; 87186

== ENCOUNTER 2018-04-03 04:51 | Inpatient (IN) | payer MEDICARE, OTHER ==
[~2018-04-03] VITALS: Ht 154.9 cm; Wt 59.2 kg
[~2018-04-03 04:51] MED LIST changes: -METO25ER PO; -PREG25 PO
[2018-04-03 05:03] LABS: PCO2 Arterial 57.8 mmHg (35-45); PO2 Arterial 63.6 mmHg (80-100); pH Blood Arterial 7.33 (7.35-7.45)
[2018-04-03 05:14] LABS: BASOPHILS ABSOLUTE AUTO 0.08 K/mm3 (0.00-0.23); BASOPHILS PERCENT AUTO 0 % (0-2); EOSINOPHILS ABSOLUTE AUTO 0.38 K/mm3 (0.00-0.68); EOSINOPHILS PERCENT AUTO 2 % (0-6); Hematocrit 43.3 % (33.0-51.0); IMMATURE GRAN ABSOLUTE AUTO 0.07 K/mm3 (0.00-0.10); IMMATURE GRAN PERCENT AUTO 0 % (0-1); LYMPHOCYTES ABSOLUTE AUTO 2.48 K/mm3 (0.84-5.20); LYMPHOCYTES PERCENT AUTO 14 % (21-46); MONOCYTES ABSOLUTE AUTO 0.77 K/mm3 (0.16-1.47); MONOCYTES PERCENT AUTO 4 % (4-13); Mean Corpuscular HGB 29.7 pg (26.0-34.0); Mean Corpuscular HGB Conc 32.3 g/dL (31.5-36.5); Mean Corpuscular Volume 92 fL (80-100); Mean Platelet Volume 9.1 fL (9.1-12.4); NEUTROPHILS ABSOLUTE AUTO 14.15 K/mm3 (1.96-9.15); NEUTROPHILS PERCENT AUTO 79 % (41-73); Platelet Count 433 K/mm3 (150-400); RDW Coefficient Variation 14.5 % (11.7-14.2); RDW Standard Deviation 48.9 fL (35.1-46.3); Red Blood Cell Count 4.72 M/mm3 (3.80-5.20); White Blood Cell Count 17.93 K/mm3 (4.00-11.30)
[2018-04-03 05:27] LABS: Alanine Aminotransfer (ALT/SGP 56 U/L (12-78); Albumin/Globulin Ratio 0.9 (0.8-1.8); Alk Phos 111 U/L (50-136); Anion Gap 8 mmol/L (6-16); Aspartate Aminotrans (AST/SGOT 79 U/L (12-37); Bilirubin, Total 0.3 mg/dL (0.1-1.0); Blood Urea Nitrogen 18 mg/dL (8-24); Bun/Creatinine Ratio 11.5 (12.0-20.0); CO2, Blood 29 mmol/L (21-32); Calcium, Blood 8.6 mg/dL (8.5-10.1); Chloride, Blood 96 mmol/L (98-108); Creatinine, Blood 1.56 mg/dL (0.40-1.00); Globulin, Blood 4.4 g/dL (2.2-4.0); Glomerular Filtration Rate 35 (60-); Glucose, Blood 133 mg/dL (70-99); Potassium, Blood 3.4 mmol/L (3.5-5.5); Sodium, Blood 133 mmol/L (136-145); Total Protein, Blood 8.4 g/dL (6.4-8.2); Troponin I <0.015 ng/mL (0.000-0.040)
[2018-04-03] MEDS ORDERED: PREG25 PO (05:38)
[2018-04-03] MEDS ORDERED: METO25ER PO (05:38)
[2018-04-03 05:41] LABS: Influenza A Negative (NEGATIVE); Influenza B Negative (NEGATIVE)
--- NOTE | 2018-04-03 23:50 | NUR ---
IV NOT DOCUMENTED PIV IN LW, INSERTED PRIOR TO ARRIVAL TO HOSP. APPEARS TO BE EMS START.
--- NOTE | 2018-04-04 06:05 | NUR ---
SHIFT SUMMARY PT SLEEPING IN ROOM COMFORTABLY. PT WAS VERY PAINFUL IN EARLY HALF OF SHIFT. REPORTS NORMALLY TAKES MUSCLE RELAXER AT HOME AND LYRICA FOR FIBROMYALGIA. PT HAD HAD NEITHER HOME MEDICATIONS ALL DAY AND PAIN WAS BECOMING UNBEARABLE. PROVIDER CALLED FOR ADDITION OF HOME MEDS TO EMAR. PT SPO2 HAS BEEN DOING WELL TONIGHT W/ SATS >95% ON 3L. AFTER MEDICATING PT REPORTS FEELING MUCH BETTER AND WAS ABLE TO SLEEP FOR SEVERAL HOURS. PT ABLE TO SELF REPOSITION IN BED AND IS SBA TO BSC. CALL LIGHT IN REACH. PT CALLS APPROPRIATELY.
[2018-04-04 11:10] LABS: BASOPHILS ABSOLUTE AUTO 0.04 K/mm3 (0.00-0.23); BASOPHILS PERCENT AUTO 0 % (0-2); EOSINOPHILS PERCENT AUTO 0 % (0-6); Hematocrit 39.1 % (33.0-51.0); Hemoglobin 12.5 g/dL (11.5-16.0); IMMATURE GRAN ABSOLUTE AUTO 0.15 K/mm3 (0.00-0.10); IMMATURE GRAN PERCENT AUTO 1 % (0-1); LYMPHOCYTES ABSOLUTE AUTO 0.94 K/mm3 (0.84-5.20); LYMPHOCYTES PERCENT AUTO 5 % (21-46); MONOCYTES ABSOLUTE AUTO 0.59 K/mm3 (0.16-1.47); MONOCYTES PERCENT AUTO 3 % (4-13); Mean Corpuscular Volume 94 fL (80-100); Mean Platelet Volume 9.5 fL (9.1-12.4); NEUTROPHILS PERCENT AUTO 91 % (41-73); Platelet Count 375 K/mm3 (150-400); RDW Standard Deviation 52.1 fL (35.1-46.3); Red Blood Cell Count 4.17 M/mm3 (3.80-5.20); White Blood Cell Count 19.92 K/mm3 (4.00-11.30)
[2018-04-04 11:26] LABS: Bun/Creatinine Ratio 24.3 (12.0-20.0); Creatinine, Blood 0.99 mg/dL (0.40-1.00)
--- NOTE | 2018-04-04 18:00 | NUR ---
PT. ARRIVED TO FLOOR VIA WC FROM U 16. A&O PLEASANT AND COOPERATIVE. PT. SOB WITH EXERTION.
[2018-04-05 05:33] LABS: BASOPHILS ABSOLUTE AUTO 0.02 K/mm3 (0.00-0.23); BASOPHILS PERCENT AUTO 0 % (0-2); EOSINOPHILS PERCENT AUTO 0 % (0-6); Hematocrit 35.9 % (33.0-51.0); Hemoglobin 11.5 g/dL (11.5-16.0); IMMATURE GRAN PERCENT AUTO 1 % (0-1); LYMPHOCYTES ABSOLUTE AUTO 0.87 K/mm3 (0.84-5.20); LYMPHOCYTES PERCENT AUTO 5 % (21-46); MONOCYTES PERCENT AUTO 3 % (4-13); Mean Corpuscular HGB 29.7 pg (26.0-34.0); Mean Corpuscular Volume 93 fL (80-100); Mean Platelet Volume 10.1 fL (9.1-12.4); NEUTROPHILS ABSOLUTE AUTO 16.12 K/mm3 (1.96-9.15); NEUTROPHILS PERCENT AUTO 91 % (41-73); Platelet Count 339 K/mm3 (150-400); RDW Coefficient Variation 15.9 % (11.7-14.2); RDW Standard Deviation 53.6 fL (35.1-46.3); Red Blood Cell Count 3.87 M/mm3 (3.80-5.20); White Blood Cell Count 17.71 K/mm3 (4.00-11.30)
[2018-04-05 05:50] LABS: Bun/Creatinine Ratio 32.7 (12.0-20.0); Creatinine, Blood 1.04 mg/dL (0.40-1.00); Potassium, Blood 4.1 mmol/L (3.5-5.5)
--- NOTE | 2018-04-05 06:20 | NUR ---
NOC SHIFT SUMMARY PT HAS BEEN PLEASANT AND COOPERATIVE WITH CARE THIS NIGHT. HER RESP HAVE BEEN EVEN AND UNLABORED. LUNGS SOUND DIM THROUGHOUT. AFTER EVENING VITALS AND MED PASS SHE SOON FELL ASLEEP AND HAS SLEPT MOST OF THE NIGHT. APPEARS IN NO ACUTE DISTRESS. WILL CONTINUE TO MONITOR.
--- NOTE | 2018-04-05 18:44 | NUR ---
PT.'S SOLUMEDROL DECREASED TODAY AND PT GETTING NPH WITH SOLUMEDROL DOSE. BLOOD SUGAR BEFORE DINNER WASS 98. LUNGS ARE STARTING TO LOOSEN UP AND PT. IS ABLE TO BRING SPUTUM UP.NO OTHER NOTEABLE CHANGES THIS SHIFT.
--- NOTE | 2018-04-06 04:18 | NUR ---
NOC SHIFT SUMMARY PT PLEASANT AND COOPERATIVE WITH CARE THIS NIGHT. WENT TO SLEEP SHORTLY AFTER EVENING MED PASS. AWOKE AND REQUESTED MUSCLE RELAXER FOR DISCOMFORT. THIS WAS PROVIDED AND PT SOON WAS ABLE TO SLEEP AGAIN. BP HAS BEEN INCREASED, DISCUSSED WITH SOLAR POWER INSTALLER. WILL RECHECK BP AND CALL DOC IF NEEDED. VANGIE PT HAS NO S/S. CURRENTLY PT IS SLEEPING AND APPEARS IN NO ACUTE DISTRESS. WILL CONTINUE TO MONITOR.
[2018-04-06 05:08] LABS: BASOPHILS ABSOLUTE AUTO 0.04 K/mm3 (0.00-0.23); BASOPHILS PERCENT AUTO 0 % (0-2); EOSINOPHILS ABSOLUTE AUTO 0.01 K/mm3 (0.00-0.68); EOSINOPHILS PERCENT AUTO 0 % (0-6); Hematocrit 37.1 % (33.0-51.0); Hemoglobin 12.1 g/dL (11.5-16.0); IMMATURE GRAN ABSOLUTE AUTO 0.38 K/mm3 (0.00-0.10); IMMATURE GRAN PERCENT AUTO 2 % (0-1); LYMPHOCYTES ABSOLUTE AUTO 1.27 K/mm3 (0.84-5.20); LYMPHOCYTES PERCENT AUTO 7 % (21-46); MONOCYTES PERCENT AUTO 4 % (4-13); Mean Corpuscular HGB 30.3 pg (26.0-34.0); Mean Corpuscular HGB Conc 32.6 g/dL (31.5-36.5); Mean Corpuscular Volume 93 fL (80-100); Mean Platelet Volume 9.8 fL (9.1-12.4); NEUTROPHILS ABSOLUTE AUTO 15.84 K/mm3 (1.96-9.15); NEUTROPHILS PERCENT AUTO 87 % (41-73); Platelet Count 345 K/mm3 (150-400); RDW Coefficient Variation 15.4 % (11.7-14.2); RDW Standard Deviation 52.7 fL (35.1-46.3); Red Blood Cell Count 3.99 M/mm3 (3.80-5.20); White Blood Cell Count 18.24 K/mm3 (4.00-11.30)
[2018-04-06 06:41] LABS: Calcium, Blood 9.1 mg/dL (8.5-10.1)
--- NOTE | 2018-04-06 15:55 | NUR ---
SHIFT SUMMARY NO ACUTE CHANGES. PATIENT MEDICATED X1 FOR PAIN. PATIENT NAPPED MOST OF DAY. SBA TO BS, PATIENT REPORTS SHE IS STILL WEAK BUT FEELING A LITTLE BIT BETTER. PRN BREATHING TREATMENTS. PLEASANT AND COOPERATIVE. CALL LIGHT IN REACH, WILL CONTINUE TO MONITOR.
--- NOTE | 2018-04-07 02:40 | NUR ---
SHIFT SUMMARY PT LYING HF, AWAKE, AT START OF SHIFT. A&O, SBA TO BSC. CALLS APPROPRIATELY. ADMITTED FOR ACUTE RESPIRATORY FAILURE; IMPROVING. LUNGS T/O DIMINISHED THRU OUT. COARSE PC. HX COPD, HTN, AND CKD STAGE 3. DENIES BEING DIABETIC. REPORTS STEROID CAUSED. MEDICATED RECENTLY FOR C/O PAIN TO BACK AND R SHOULDER. REPORTED MEDICATION EFFECTIVE. CALL LT IN REACH. ABLE TO MAKE NEEDS KNOWN.
[2018-04-07 05:17] LABS: BASOPHILS ABSOLUTE AUTO 0.04 K/mm3 (0.00-0.23); BASOPHILS PERCENT AUTO 0 % (0-2); EOSINOPHILS PERCENT AUTO 0 % (0-6); Hemoglobin 12.2 g/dL (11.5-16.0); IMMATURE GRAN ABSOLUTE AUTO 0.34 K/mm3 (0.00-0.10); IMMATURE GRAN PERCENT AUTO 3 % (0-1); LYMPHOCYTES ABSOLUTE AUTO 1.03 K/mm3 (0.84-5.20); LYMPHOCYTES PERCENT AUTO 7 % (21-46); MONOCYTES ABSOLUTE AUTO 0.63 K/mm3 (0.16-1.47); MONOCYTES PERCENT AUTO 5 % (4-13); Mean Corpuscular HGB 29.8 pg (26.0-34.0); Mean Corpuscular HGB Conc 32.1 g/dL (31.5-36.5); Mean Corpuscular Volume 93 fL (80-100); Mean Platelet Volume 9.9 fL (9.1-12.4); NEUTROPHILS ABSOLUTE AUTO 11.83 K/mm3 (1.96-9.15); NEUTROPHILS PERCENT AUTO 85 % (41-73); Platelet Count 322 K/mm3 (150-400); RDW Coefficient Variation 15.2 % (11.7-14.2); RDW Standard Deviation 51.8 fL (35.1-46.3); Red Blood Cell Count 4.09 M/mm3 (3.80-5.20); White Blood Cell Count 13.87 K/mm3 (4.00-11.30)
[2018-04-07 05:39] LABS: Anion Gap 9 mmol/L (6-16); Blood Urea Nitrogen 44 mg/dL (8-24); Bun/Creatinine Ratio 46.2 (12.0-20.0); CO2, Blood 27 mmol/L (21-32); Calcium, Blood 8.9 mg/dL (8.5-10.1); Chloride, Blood 101 mmol/L (98-108); Creatinine, Blood 0.95 mg/dL (0.40-1.00); Glomerular Filtration Rate >60 (60-); Glucose, Blood 166 mg/dL (70-99); Potassium, Blood 4.3 mmol/L (3.5-5.5); Sodium, Blood 137 mmol/L (136-145)
--- NOTE | 2018-04-07 17:47 | NUR ---
PT A/OX3, PLEASANT AND COOPERATIVE, THE PT IS UP IND IN HER ROOM, THE PT REPORTED THAT SHE FELT SHE IS BREATHING EASIER SINCE ADMISSION, THE PT WAS WEANED OFF OF HER O2 TODAY AND IS TOLERATING IT WELL, PT WAS MEDICATED FOR CHRONIC PAIN X2 SO FAR THIS SHIFT, CALL LIGHT IN REACH, NO OTHER CHANGES NOTICED THIS SHIFT
--- NOTE | 2018-04-08 03:18 | NUR ---
SHIFT SUMMARY NO ACUTE CHANGES TO PRESENT THIS SHIFT. PT IS A&O AND HAS BEEN INDEPENDANT TO BTHRM FOR THE PAST 24 HRS NOW. WAS 1P ASSIST JUST TO BSC PRIOR TO THAT. PT HAS ALSO BEEN TITRATED TO RA YESTERDAY AM AND HAS REMAINED ON RA, TOLERATING IT WELL. NO C/O. CONTINUES TO IMPROVE AND HOPES TO GO HOME TODAY. CALL LT IN REACH.
--- NOTE | 2018-04-08 10:21 | NUR ---
CALLED PT'S , LEFT MESSAGE EMAR SHOWED HUMLIN WAS TO BE GIVEN W/SOLUMEDROL AT 0900 HRS. EMAR SHOWED BLOOD GLUCOSE MEASURED AT 89, WITH SCHEDULED HUMULIN AND PREDNISONE TO BE ADMINISTERED. CALLED DR FOR FURTHER INSTRUCTION ON IF THIS ADMINISTRATION SHOULD PROCEED. DR. WOODS'D HUMILIN FOR 0900 DOSEAGE. HUMULIN WITHELD, ORDERED.
[2018-04-08] MEDS ORDERED: LEVO750 PO (13:45)
[2018-04-08] MEDS ORDERED: Acidophilus La100 GM (13:46)
[2018-04-08] MEDS ORDERED: NICOTINE PATCH (13:49)
[2018-04-08] MEDS ORDERED: PRED20 PO (13:51)
--- NOTE | 2018-04-08 14:54 | NUR ---
DISCHARGE NOTE PT DRESSED IN PERSONAL CLOTHES, GATHERED UP PERSONAL BELONGINGS. MEDICATION PRESCRIPTIONS FAXED TO PREFERED PHARMACY. IV DC'D WITHIN NORMAL LIMITS. PT & FAMILY GIVEN HARDCOPY AND VERBAL DISCHARGE INSTRUCTIONS ON DIAGNOSES, MEDICATIONS, AND FOLLOW UP APPOINTMENTS. PT HAD NO FURTHER QUESTIONS. PT ESCORTED OUT BY STRIKE OUT MACHINE OPERATOR VIA WHEELCHAIR TO FAMILY VEHICLE.
== END 2018-04-08 14:49 | disposition home or self-care (01) | DRG 871 ==
LOC: ER 04:51 → ERHOLD 05:30 → PCU 14:30 → MEDS 14:39
PROVIDERS: Emergency Medicine; Hospitalist; Internal Medicine; ADMIT Family Medicine
DX: A41.81 Sepsis due to Enterococcus (principal); J96.01 Acute respiratory failure with hypoxia; J96.02 Acute respiratory failure with hypercapnia; J18.9 Pneumonia, unspecified organism; E87.1 Hypo-osmolality and hyponatremia; N39.0 Urinary tract infection, site not specified; J44.1 Chronic obstructive pulmonary disease with (acute) exacerbation; J44.0 Chronic obstructive pulmonary disease with (acute) lower respiratory infection; I13.0 Hypertensive heart and chronic kidney disease with heart failure and stage 1 through stage 4 chronic kidney disease, or unspecified chronic kidney disease; R65.20 Severe sepsis without septic shock; E87.6 Hypokalemia; N18.3 Chronic kidney disease, stage 3 (moderate); E78.5 Hyperlipidemia, unspecified; I50.9 Heart failure, unspecified; M79.7 Fibromyalgia; I25.10 Atherosclerotic heart disease of native coronary artery without angina pectoris; E03.9 Hypothyroidism, unspecified; D47.3 Essential (hemorrhagic) thrombocythemia; E11.22 Type 2 diabetes mellitus with diabetic chronic kidney disease; M19.90 Unspecified osteoarthritis, unspecified site; F17.210 Nicotine dependence, cigarettes, uncomplicated; I25.2 Old myocardial infarction; Z86.73 Personal history of transient ischemic attack (TIA), and cerebral infarction without residual deficits; Z88.8 Allergy status to other drugs, medicaments and biological substances
CPT/HCPCS: 36415; 36600; 71045; 80048; 80053; 80069; 82803; 82947; 83036; 83605; 83735; 83880; 84145; 84484; 85018; 85025; 87040; 87070; 87205; 87804; 93005; 93010; 94640; 94660; 94760; 94761; 94762; 96365; 96372-59; 96375; 96376; 99285-25; J1650; J1815; J1956; J2930; J7050

== ENCOUNTER 2018-05-20 13:56 | Emergency (ER) | payer MEDICARE, OTHER ==
[~2018-05-20] VITALS: Ht 165.1 cm; Wt 56.7 kg
[~2018-05-20 13:56] MED LIST changes: +Acidophilus La100 GM; +METO25ER PO; +NICOTINE PATCH; +PRED20 PO; +PREG25 PO
[2018-05-20 14:09] LABS: BASOPHILS ABSOLUTE AUTO 0.06 K/mm3 (0.00-0.23); BASOPHILS PERCENT AUTO 1 % (0-2); EOSINOPHILS ABSOLUTE AUTO 0.08 K/mm3 (0.00-0.68); EOSINOPHILS PERCENT AUTO 1 % (0-6); Hematocrit 36.7 % (33.0-51.0); Hemoglobin 11.7 g/dL (11.5-16.0); IMMATURE GRAN ABSOLUTE AUTO 0.04 K/mm3 (0.00-0.10); IMMATURE GRAN PERCENT AUTO 0 % (0-1); LYMPHOCYTES ABSOLUTE AUTO 2.01 K/mm3 (0.84-5.20); LYMPHOCYTES PERCENT AUTO 18 % (21-46); MONOCYTES PERCENT AUTO 5 % (4-13); Mean Corpuscular HGB 30.7 pg (26.0-34.0); Mean Corpuscular HGB Conc 31.9 g/dL (31.5-36.5); Mean Corpuscular Volume 96 fL (80-100); Mean Platelet Volume 9.8 fL (9.1-12.4); NEUTROPHILS ABSOLUTE AUTO 8.22 K/mm3 (1.96-9.15); NEUTROPHILS PERCENT AUTO 75 % (41-73); Platelet Count 360 K/mm3 (150-400); RDW Coefficient Variation 14.8 % (11.7-14.2); RDW Standard Deviation 51.8 fL (35.1-46.3); Red Blood Cell Count 3.81 M/mm3 (3.80-5.20); White Blood Cell Count 11.01 K/mm3 (4.00-11.30)
[2018-05-20] MEDS ORDERED: MIRT15 PO (14:10)
[2018-05-20] MEDS ORDERED: Metoclopramide H5 MG PO (14:11)
[2018-05-20 14:35] LABS: Albumin, Blood 3.5 g/dL (3.4-5.0); Albumin/Globulin Ratio 0.9 (0.8-1.8); Bilirubin, Total 0.3 mg/dL (0.1-1.0); Bun/Creatinine Ratio 8.8 (12.0-20.0); Calcium, Blood 9.1 mg/dL (8.5-10.1); Creatinine, Blood 1.14 mg/dL (0.40-1.00); Globulin, Blood 4.1 g/dL (2.2-4.0); Potassium, Blood 3.9 mmol/L (3.5-5.5); Total Protein, Blood 7.6 g/dL (6.4-8.2)
[2018-05-20 15:06] LABS: Troponin I <0.015 ng/mL (0.000-0.040)
[2018-05-20] MEDS ORDERED: ONDA4ODT MM (15:49)
[2018-05-20] MEDS ORDERED: BENZ100A PO (15:49)
== END 2018-05-20 16:40 | disposition home or self-care (01) ==
LOC: ER 13:56
PROVIDERS: Emergency Medicine
DX: R19.7 Diarrhea, unspecified (principal); R06.2 Wheezing; R11.0 Nausea; I12.9 Hypertensive chronic kidney disease with stage 1 through stage 4 chronic kidney disease, or unspecified chronic kidney disease; N18.9 Chronic kidney disease, unspecified; E78.5 Hyperlipidemia, unspecified; J44.9 Chronic obstructive pulmonary disease, unspecified; Z88.5 Allergy status to narcotic agent; Z88.8 Allergy status to other drugs, medicaments and biological substances; Z79.899 Other long term (current) drug therapy
CPT/HCPCS: 36415; 71046; 80053; 83690; 83880; 84484; 85025; 94640; 96360; 99284-25; J7030

== ENCOUNTER 2018-06-09 15:15 | Emergency (ER) | payer MEDICARE, OTHER ==
[~2018-06-09] VITALS: Ht 152.4 cm; Wt 56.7 kg
[~2018-06-09 15:15] MED LIST changes: +BENZ100A PO; +MIRT15 PO; +Metoclopramide H5 MG PO
[2018-06-09 15:49] LABS: BASOPHILS ABSOLUTE AUTO 0.06 K/mm3 (0.00-0.23); BASOPHILS PERCENT AUTO 1 % (0-2); EOSINOPHILS ABSOLUTE AUTO 0.12 K/mm3 (0.00-0.68); EOSINOPHILS PERCENT AUTO 1 % (0-6); Hematocrit 36.7 % (33.0-51.0); Hemoglobin 12.5 g/dL (11.5-16.0); IMMATURE GRAN ABSOLUTE AUTO 0.06 K/mm3 (0.00-0.10); IMMATURE GRAN PERCENT AUTO 1 % (0-1); LYMPHOCYTES ABSOLUTE AUTO 3.08 K/mm3 (0.84-5.20); LYMPHOCYTES PERCENT AUTO 30 % (21-46); MONOCYTES ABSOLUTE AUTO 0.76 K/mm3 (0.16-1.47); MONOCYTES PERCENT AUTO 8 % (4-13); Mean Corpuscular HGB 30.6 pg (26.0-34.0); Mean Corpuscular HGB Conc 34.1 g/dL (31.5-36.5); Mean Corpuscular Volume 90 fL (80-100); Mean Platelet Volume 9.1 fL (9.1-12.4); NEUTROPHILS PERCENT AUTO 60 % (41-73); Platelet Count 481 K/mm3 (150-400); RDW Coefficient Variation 13.4 % (11.7-14.2); RDW Standard Deviation 43.6 fL (35.1-46.3); Red Blood Cell Count 4.09 M/mm3 (3.80-5.20); White Blood Cell Count 10.18 K/mm3 (4.00-11.30)
[2018-06-09 16:10] LABS: Albumin, Blood 3.5 g/dL (3.4-5.0); Albumin/Globulin Ratio 0.9 (0.8-1.8); Bilirubin, Total 0.4 mg/dL (0.1-1.0); Bun/Creatinine Ratio 14.4 (12.0-20.0); Creatinine, Blood 1.11 mg/dL (0.40-1.00); Globulin, Blood 3.9 g/dL (2.2-4.0); Potassium, Blood 3.4 mmol/L (3.5-5.5); Total Protein, Blood 7.4 g/dL (6.4-8.2)
[2018-06-09] MEDS ORDERED: PROM25 PO (18:47)
== END 2018-06-09 20:12 | disposition home or self-care (01) ==
LOC: ER 15:15
PROVIDERS: Emergency Medicine
DX: F10.10 Alcohol abuse, uncomplicated (principal); R10.13 Epigastric pain; R11.2 Nausea with vomiting, unspecified; I12.9 Hypertensive chronic kidney disease with stage 1 through stage 4 chronic kidney disease, or unspecified chronic kidney disease; E78.5 Hyperlipidemia, unspecified; N18.3 Chronic kidney disease, stage 3 (moderate); J44.9 Chronic obstructive pulmonary disease, unspecified; Z88.6 Allergy status to analgesic agent; Z88.8 Allergy status to other drugs, medicaments and biological substances; Z79.899 Other long term (current) drug therapy; Z87.891 Personal history of nicotine dependence
CPT/HCPCS: 80053; 83690; 84484; 85025; 93005; 93010; 96361; 96374; 96375; 99284-25; J1200; J1630; J2060; J2405; J2550; J7030

== ENCOUNTER 2018-07-03 11:16 | Inpatient (IN) | payer MEDICARE, OTHER ==
[~2018-07-03] VITALS: Ht 152.4 cm; Wt 57.7 kg
[2018-07-03 11:58] LABS: BASOPHILS ABSOLUTE AUTO 0.05 K/mm3 (0.00-0.23); BASOPHILS PERCENT AUTO 0 % (0-2); EOSINOPHILS ABSOLUTE AUTO 0.01 K/mm3 (0.00-0.68); EOSINOPHILS PERCENT AUTO 0 % (0-6); Hematocrit 37.4 % (33.0-51.0); Hemoglobin 12.9 g/dL (11.5-16.0); IMMATURE GRAN ABSOLUTE AUTO 0.07 K/mm3 (0.00-0.10); IMMATURE GRAN PERCENT AUTO 1 % (0-1); LYMPHOCYTES ABSOLUTE AUTO 1.87 K/mm3 (0.84-5.20); LYMPHOCYTES PERCENT AUTO 13 % (21-46); MONOCYTES ABSOLUTE AUTO 1.28 K/mm3 (0.16-1.47); MONOCYTES PERCENT AUTO 9 % (4-13); Mean Corpuscular HGB 30.5 pg (26.0-34.0); Mean Corpuscular HGB Conc 34.5 g/dL (31.5-36.5); Mean Corpuscular Volume 88 fL (80-100); Mean Platelet Volume 9.5 fL (9.1-12.4); NEUTROPHILS ABSOLUTE AUTO 10.79 K/mm3 (1.96-9.15); NEUTROPHILS PERCENT AUTO 77 % (41-73); Platelet Count 440 K/mm3 (150-400); RDW Coefficient Variation 13.6 % (11.7-14.2); RDW Standard Deviation 44.1 fL (35.1-46.3); Red Blood Cell Count 4.23 M/mm3 (3.80-5.20); White Blood Cell Count 14.07 K/mm3 (4.00-11.30)
[2018-07-03 12:58] LABS: Alanine Aminotransfer (ALT/SGP 100 U/L (12-78); Albumin, Blood 3.7 g/dL (3.4-5.0); Albumin/Globulin Ratio 0.8 (0.8-1.8); Alk Phos 183 U/L (50-136); Anion Gap 14 mmol/L (6-16); Aspartate Aminotrans (AST/SGOT 61 U/L (12-37); Bilirubin, Total 0.7 mg/dL (0.1-1.0); Blood Urea Nitrogen 14 mg/dL (8-24); Bun/Creatinine Ratio 17.3 (12.0-20.0); CO2, Blood 19 mmol/L (21-32); Calcium, Blood 8.1 mg/dL (8.5-10.1); Chloride, Blood 99 mmol/L (98-108); Creatinine, Blood 0.81 mg/dL (0.40-1.00); Globulin, Blood 4.5 g/dL (2.2-4.0); Glomerular Filtration Rate >60 (60-); Glucose, Blood 168 mg/dL (70-99); Potassium, Blood 3.6 mmol/L (3.5-5.5); Sodium, Blood 132 mmol/L (136-145); Total Protein, Blood 8.2 g/dL (6.4-8.2)
[2018-07-03 13:30] LABS: Source, Urine Catheter
[2018-07-03 13:38] LABS: Bilirubin, Urine Neg (Neg); Blood, Urine 1+ (Neg); Glucose Qualitative, Urine Neg (Neg); Ketones, Urine 3+ (Neg); Leukocyte Esterase, Urine Neg (Neg); Nitrite, Urine Neg (Neg); Protein, Urine 2+ (Neg); Urobilinogen, Urine NORM (Normal)
[2018-07-03 14:21] LABS: Appearance, Urine Hazy (Clear); Color, Urine Yellow (P-Yellow)
[2018-07-03 14:22] LABS: Hyaline Casts Rare /lpf (0-2)
[2018-07-03 14:23] LABS: Red Blood Cells, Urine 0-2 /hpf (0-2); Squamous Epithelial Cells Rare /hpf (Few); White Blood Cells, Urine 0-2 /hpf (0-5)
[2018-07-03 14:24] LABS: Amorphous Light (0-Heavy); Bacteria Rare /hpf
[2018-07-03] MEDS ORDERED: METO100ER PO (15:55)
[2018-07-03] MEDS ORDERED: MIRT30 PO (15:56)
[2018-07-03] MEDS ORDERED: TRAM50 PO (15:57)
[2018-07-03] MEDS ORDERED: ANORO ELLIPTA1 EACH INH (15:58)
[2018-07-03 16:10] LABS: U Amphetamine Screen Not Detected; U Barbituate Screen Not Detected; U Benzodiazapine Screen Not Detected; U Buprenorphine Screen Not Detected; U Cannabinoids Screen DETECTED; U Cocaine Screen Not Detected; U Methadone Screen Not Detected; U Methamphetamine Screen Not Detected; U Opiates Screen Not Detected; U Oxycodone Screen Not Detected; U Phencyclidine Screen Not Detected; U Propoxyphene Screen Not Detected
[2018-07-03 17:45] LABS: PCO2 Arterial 25.9 mmHg (35-45); PO2 Arterial 89.5 mmHg (80-100); pH Blood Arterial 7.54 (7.35-7.45)
--- NOTE | 2018-07-03 18:56 | NUR ---
PT ARRIVED TO ICU 1 VIA CASTILLO FROM ED. REPORT WAS OBTAINED, PT ABLE TO GET HERSELFT OF KRISTINRYEN AND INTO THE BED, STATES SHE IS STILL NAUSIATED, DENIES PAIN AT THIS TIME, LUNGS ARE CLEAR IN UPPER SILVA, DIM WITH SOME WHEEZING TO BASES, RESP EVEN AND UNLABORED, NO COUGH NOTED, BUT REPORTS A PRODUCTIVE COUGH WITH SMALL AMOUNT OF YELLOW SPUTUM, IS CURRENTLY ON R/A, HRR, MONITOR IN PLACE RUNNING ST IN THE 140'S PER MONITOR, SEE STRIP, NO EDEMA NOTED, PPP+1, CAP REFILL <3SEC, VS STABLE, AFEBRILE, IV SITE TO RFA IS CLEAR AND PATENT, BTX4, ABD ROUND SOFT NONTENDER, VOIDS WITHOUT DIFF, SKIN C/W/D, DAREK PHAN, ORIENTED TO ROOM LAYOUT CALL SYSTEM, CALL LIGHT IN REACH.
--- NOTE | 2018-07-03 19:40 | NUR ---
ASSUMED CARE BEDSIDE REPORT RECIEVED. PT IS AWAKE, ALERT, ORIENTED, AND ANXIOUS. PT IS COMPLAINING OF NAUSEA AT THIS TIME. PT DENIES PAIN. PT ON ROOM AIR. HR 140'S. D5 1/2 NS INFUSING AT 50 ML/HR. PT WITH ATTENDS IN PLACE. 2ND IV PLACED AND PRN ZOFRAN AND LABETALOL GIVEN PER EMAR. WILL CONTINUE TO MONITOR.
--- NOTE | 2018-07-04 02:15 | NUR ---
HYPOTENSIVE DR FIGUEROA NOTIFIED OF SBP'S TRENDING 70-80'S. ORDERS RECIEVED FOR 500 ML NS BOLUS. WILL CONTINUE TO MONITOR.
[2018-07-04 05:02] LABS: BASOPHILS ABSOLUTE AUTO 0.03 K/mm3 (0.00-0.23); BASOPHILS PERCENT AUTO 0 % (0-2); EOSINOPHILS ABSOLUTE AUTO 0.08 K/mm3 (0.00-0.68); EOSINOPHILS PERCENT AUTO 1 % (0-6); Hematocrit 31.7 % (33.0-51.0); Hemoglobin 10.4 g/dL (11.5-16.0); IMMATURE GRAN ABSOLUTE AUTO 0.04 K/mm3 (0.00-0.10); IMMATURE GRAN PERCENT AUTO 1 % (0-1); LYMPHOCYTES ABSOLUTE AUTO 2.81 K/mm3 (0.84-5.20); LYMPHOCYTES PERCENT AUTO 35 % (21-46); MONOCYTES ABSOLUTE AUTO 1.05 K/mm3 (0.16-1.47); MONOCYTES PERCENT AUTO 13 % (4-13); Mean Corpuscular HGB 30.2 pg (26.0-34.0); Mean Corpuscular HGB Conc 32.8 g/dL (31.5-36.5); Mean Platelet Volume 9.5 fL (9.1-12.4); NEUTROPHILS ABSOLUTE AUTO 4.05 K/mm3 (1.96-9.15); NEUTROPHILS PERCENT AUTO 50 % (41-73); Platelet Count 290 K/mm3 (150-400); RDW Standard Deviation 46.9 fL (35.1-46.3); Red Blood Cell Count 3.44 M/mm3 (3.80-5.20); White Blood Cell Count 8.06 K/mm3 (4.00-11.30)
[2018-07-04 05:12] LABS: Mean Corpuscular Volume 92 fL (80-100)
[2018-07-04 05:28] LABS: Albumin, Blood 2.9 g/dL (3.4-5.0); Albumin/Globulin Ratio 0.9 (0.8-1.8); Bilirubin, Total 0.6 mg/dL (0.1-1.0); Bun/Creatinine Ratio 7.5 (12.0-20.0); Creatinine, Blood 1.2 mg/dL (0.40-1.00); Globulin, Blood 3.3 g/dL (2.2-4.0); Potassium, Blood 3.1 mmol/L (3.5-5.5)
--- NOTE | 2018-07-04 06:12 | NUR ---
SHIFT SUMMARY PT HAS REMAINED HYPOTENSIVE DESPITE THREE 500 ML NS BOLUSES AND NARCAN. PT IS MORE SOMNOLENT THIS AM AND IS DIFFICULT TO AROUSE. PT AWAKENS FOR VERY BREIF PERIOD WITH NOXIOUS STIMULI THEN QUICKLY BACK TO SNORING. DR FIGUEROA IS AWARE. PT REMAINS ON ROOM AIR. D5 1/2 NS INFUSING AT 50 ML/HR. PT WITH ATTENDS IN PLACE. WILL CONTINUE TO MONITOR AND REPORT OFF TO ONCOMING RN.
[2018-07-04 07:17] LABS: Total Protein, Blood 6.2 g/dL (6.4-8.2)
--- NOTE | 2018-07-04 10:35 | NUR ---
PT SLEEPING, AROUSES TO VOICE AT 0715 THIS AM. OX3. SBA TO TOILET. BP LABILE. PT HAS HX OF LEFT SUBCLAVIAN BYPASS, BP CUFF MOVED TO RIGHT ARM. PT IN SINUS TACH, HR INCREASES W EXERTION. PT C/O CHRONIC PAIN TO LOWER BACK; ULTRAM GIVEN. DR COHEN IN THIS AM TO SEE PT; SEE NEW ORDERS. PT HAD LOOSE STOOL X2; SAMPLE SENT. PT HAS PRODUCTIVE COUGH, DARK YELLOW THICK SPUTUM. POWERGLIDE PLACED TO LEFT UPPER ARM. FLUIDS DC'D.
--- NOTE | 2018-07-04 11:09 | NUR ---
Echocardiogram completed.
[2018-07-04 12:02] LABS: Adenovirus F 40/41 Not Detected (NOT DETECT); Astrovirus Not Detected (NOT DETECT); Campylobacter Sp Not Detected (NOT DETECT); Cryptosporidium Not Detected (NOT DETECT); Cyclospora Cayetanensis Not Detected (NOT DETECT); E. Coli O157 Not Detected (NOT DETECT); Entamoeba Histolytica Not Detected (NOT DETECT); Enteroaggregative E. coli-EAEC Not Detected (NOT DETECT); Enteropathogenic E. coli-EPEC Not Detected (NOT DETECT); Enterotoxigenic E. coli-ETEC Not Detected (NOT DETECT); Giardia Lamblia Not Detected (NOT DETECT); Norovirus GI/GII Not Detected (NOT DETECT); Plesiomonas Shigelloides Not Detected (NOT DETECT); Rotavirus A Not Detected (NOT DETECT); Salmonella Sp Not Detected (NOT DETECT); Sapovirus Not Detected (NOT DETECT); Shiga Toxin-prod E. coli-STEC Not Detected (NOT DETECT); Shigella/Enteroin E. coli-EIEC Not Detected (NOT DETECT); Vibrio Cholerae Not Detected (NOT DETECT); Vibrio Sp Not Detected (NOT DETECT); Yersinia Enterocolitica Not Detected (NOT DETECT)
--- NOTE | 2018-07-04 15:15 | NUR ---
PT'S STOOL SAMPLE CAME BACK C-DIFF+. MAG IVPB COMPLETE. NS W KCL INFUSING PER ORDERS. PT W/O COMPLAINTS. WILL NOTIFY MD OF POS C-DIFF RESULTS; PT NOTIFIED AND EDUCATED; PLACED IN CONTACT PRECAUTIONS.
[2018-07-04 16:29] LABS: Albumin, Blood 2.7 g/dL (3.4-5.0); Anion Gap 9 mmol/L (6-16); Blood Urea Nitrogen 9 mg/dL (8-24); Bun/Creatinine Ratio 8.7 (12.0-20.0); CO2, Blood 21 mmol/L (21-32); Calcium, Blood 6.5 mg/dL (8.5-10.1); Chloride, Blood 111 mmol/L (98-108); Creatinine, Blood 1.04 mg/dL (0.40-1.00); Glomerular Filtration Rate 56 (60-); Glucose, Blood 125 mg/dL (70-99); Phosphorus, Blood 1.5 mg/dL (2.5-4.9); Potassium, Blood 3.3 mmol/L (3.5-5.5); Sodium, Blood 141 mmol/L (136-145)
--- NOTE | 2018-07-04 16:53 | NUR ---
C-DIFF W NEG TOX; PT INFORMED. PT HAS HAD 3 LIQUID STOOLS TODAY, DENIES ABD CRAMPING OR NAUSEA. UPDATE GIVEN TO DR COHEN; SEE NEW ORDERS. PT NOW PCU STATUS.
--- NOTE | 2018-07-04 19:40 | NUR ---
ASSUMED CARE BEDSIDE REPORT RECIEVED. PT IS SITTING UP IN BED, AWAKE, ALERT, ORIENTED, AND PLEASANT. PT FOLLOWS COMMANDS APPROPRIATELY. PT DENIES PAIN OR NAUSEA AT THIS TIME. VITAL SIGNS STABLE AT THIS TIME WITH PT ON ROOM AIR. NS WITH 20 MEQ OF POTASSIUM INFUSING AT 100 ML/HR. POWER GLIDE TO BHAVANA C/D/I. PT WITH LIQUID STOOLS AND INCONTINENT AT TIMES. PT UP TO BSC WITH SBA. WILL CONTINUE TO MONITOR.
[2018-07-05 03:51] LABS: BASOPHILS ABSOLUTE AUTO 0.03 K/mm3 (0.00-0.23); BASOPHILS PERCENT AUTO 1 % (0-2); EOSINOPHILS ABSOLUTE AUTO 0.11 K/mm3 (0.00-0.68); EOSINOPHILS PERCENT AUTO 2 % (0-6); Hematocrit 26.6 % (33.0-51.0); Hemoglobin 8.8 g/dL (11.5-16.0); IMMATURE GRAN ABSOLUTE AUTO 0.04 K/mm3 (0.00-0.10); IMMATURE GRAN PERCENT AUTO 1 % (0-1); LYMPHOCYTES ABSOLUTE AUTO 2.16 K/mm3 (0.84-5.20); LYMPHOCYTES PERCENT AUTO 36 % (21-46); MONOCYTES PERCENT AUTO 10 % (4-13); Mean Corpuscular HGB 30.9 pg (26.0-34.0); Mean Corpuscular HGB Conc 33.1 g/dL (31.5-36.5); Mean Corpuscular Volume 93 fL (80-100); Mean Platelet Volume 9.1 fL (9.1-12.4); NEUTROPHILS ABSOLUTE AUTO 3.04 K/mm3 (1.96-9.15); NEUTROPHILS PERCENT AUTO 51 % (41-73); Platelet Count 204 K/mm3 (150-400); RDW Coefficient Variation 14.4 % (11.7-14.2); RDW Standard Deviation 48.8 fL (35.1-46.3); Red Blood Cell Count 2.85 M/mm3 (3.80-5.20); White Blood Cell Count 5.98 K/mm3 (4.00-11.30)
[2018-07-05 04:05] LABS: Albumin, Blood 2.6 g/dL (3.4-5.0); Anion Gap 6 mmol/L (6-16); Blood Urea Nitrogen 7 mg/dL (8-24); CO2, Blood 21 mmol/L (21-32); Calcium, Blood 6.5 mg/dL (8.5-10.1); Chloride, Blood 118 mmol/L (98-108); Creatinine, Blood 0.99 mg/dL (0.40-1.00); Glomerular Filtration Rate 59 (60-); Glucose, Blood 92 mg/dL (70-99); Magnesium, Blood 1.6 mg/dL (1.6-2.4); Phosphorus, Blood 1.2 mg/dL (2.5-4.9); Potassium, Blood 3.3 mmol/L (3.5-5.5); Sodium, Blood 145 mmol/L (136-145)
--- NOTE | 2018-07-05 06:17 | NUR ---
SHIFT SUMMARY PT DID WELL THIS SHIFT. PT HAS SLEPT OFF AND ON THROUGHOUT THE NIGHT AND HAS AWAKENED EASILY TO VERBAL STIMULI. WHEN AWAKE PT IS ALERT AND ORIENTED. PT HAS DENIED PAIN OR NAUSEA. VITAL SIGNS HAVE REMAINED STABLE. PT ON ROOM AIR. NS WITH 20 MEQ OF POTASSIUM INFUSING AT 100 ML/HR. PT UP TO BSC TO VOID WITH SBA. WILL CONTINUE TO MONITOR AND REPORT OFF TO ONCOMING RN.
--- NOTE | 2018-07-05 09:31 | NUR ---
DR SCRUGGS IN TO SEE PT, PT NOW MEDICAL FLOOR STATUS WITH TELE. PT SBA TO COMMODE TO URINATE, ASSISTED BACK TO BED; PT WOULD LIKE TO TAKE A NAP, WARM BLANKETS PROVIDED.
--- NOTE | 2018-07-05 13:17 | NUR ---
1145- DR SCRUGGS CALLED FOR PT BP 200/97 AND 201/101 10 MIN LATER. HEART RATE 110-122. PT C/O HEADACHE. FENT 25MCG IVP GIVEN W PO HTN MEDS. ULTRAM GIVEN FOR HEADACHE 09/19, BP IMPROVED, WILL MONITOR CLOSELY. WARM BLANKETS PLACED PER PT REQUEST
--- NOTE | 2018-07-05 14:48 | NUR ---
REPORT GIVEN TO SECOND FLOOR RN, PT TAKEN OUT IN WHEELCHAIR. BP IMPROVED, HEADACHE 5/10 NOW.
--- NOTE | 2018-07-05 15:10 | NUR ---
RECIEVED REPORT FROM DIRECTOR OF TRAUMA AND STUDENT NURSE ASSUMING CARE AT THIS TIME.
--- NOTE | 2018-07-05 15:10 | NUR ---
PT TO ROOM RECENTLY BROUGHT BY RN. SETTLED TO ROOM WITH [employer] AND STUDENT. BELONGINGS WITH PT. CALL LIGHT IN PLACE. BP CHECKED WITH RN.
--- NOTE | 2018-07-05 18:29 | NUR ---
SHIFT SUMMARY PT TO SURGICAL FLOOR THIS AFTERNOON. PT HAS BEEN RESTING IN BED. PT AMBULATED TO BATHROOM WITH ASSITANCE. PT ATE DINNER AND HAS TOLERATED FOOD AND FLUIDS WELL. PT DID REPORT HEADACHE AND WAS MEDICATED PER ORDERS BY RN. SEE EMAR. CALL LIGHT IN REACH. PT USING CALL LIGHT APPR. BEEN ASSISTED WITH ADL'S PRN.
--- NOTE | 2018-07-06 04:14 | NUR ---
SHIFT SUMMARY PT A&O X4 T/O SHIFT. PT C/O HEADACHE MANAGED PER EMAR AND WITH REPOSITIONING. PT STS HX OF NECK/BACK MUSCLE TENSION AND PAIN. PT UP TO VOID CLEAR URINE FREQUENTLY WITH SBA. RA; DENIES SOB; TELEMETRY IN PLACE, SR PER CUTTER GRIND TOOL TECHNICIAN. SCD'S TO BLE'S. CIWA UNDER 8. CALL LIGHT IN REACH; PT DEMONSTRATES USE. WCTM UNTIL REPORT TO DAY SHIFT RN.
--- NOTE | 2018-07-06 07:25 | NUR ---
ASSESSMENT MORNING ASSESSMENT BY [employer] STUDENT NURSE WAS REVIEWED. THIS RN AGREES WITH ASSESSMENT DOCUMENTED. PT DID HAVE SOME INSPIRATORY AND EXPIRATORY WHEEZING WHEN THIS RN LISTENED TO LUNG SOUNDS. PT DENIED SOB.
[2018-07-06 10:37] LABS: Hematocrit 30.9 % (33.0-51.0); Mean Corpuscular HGB 30.2 pg (26.0-34.0); Mean Corpuscular HGB Conc 32.4 g/dL (31.5-36.5); Mean Corpuscular Volume 93 fL (80-100); Mean Platelet Volume 9.5 fL (9.1-12.4); Platelet Count 249 K/mm3 (150-400); RDW Coefficient Variation 14.9 % (11.7-14.2); RDW Standard Deviation 51.3 fL (35.1-46.3); Red Blood Cell Count 3.31 M/mm3 (3.80-5.20)
[2018-07-06 11:01] LABS: Albumin, Blood 3.1 g/dL (3.4-5.0); Anion Gap 6 mmol/L (6-16); Blood Urea Nitrogen 8 mg/dL (8-24); Bun/Creatinine Ratio 8.9 (12.0-20.0); CO2, Blood 23 mmol/L (21-32); Calcium, Blood 7.6 mg/dL (8.5-10.1); Chloride, Blood 110 mmol/L (98-108); Creatinine, Blood 0.89 mg/dL (0.40-1.00); Glomerular Filtration Rate >60 (60-); Glucose, Blood 117 mg/dL (70-99); Magnesium, Blood 1.4 mg/dL (1.6-2.4); Phosphorus, Blood 2.1 mg/dL (2.5-4.9); Potassium, Blood 4.5 mmol/L (3.5-5.5); Sodium, Blood 139 mmol/L (136-145)
--- NOTE | 2018-07-06 17:26 | NUR ---
SHIFT SUMMARY PT HAS COMPLAINED OF A HEADACHE DURING THE DAY, MANAGED WITH ULTRAM. BP WAS ELEVATED WITH AFTERNOON VS, PT GIVEN HYDRALAZINE, BP NOW WITHIN NORMAL RANGE. PT IS A SBA WHEN OOB. PT REPORTS FEELING TIRED TO DAY. VSS. WILL MONITOR UNTIL REPORT TO ONCOMING RN.
--- NOTE | 2018-07-06 17:59 | NUR ---
SHIFT SUMMARY PT WAS ADMITTED WITH NAUSEA & VOMITING. IS BEING TREATED FOR LOW ELECTROLYTE LEVELS. PT HAD AN EPISODE OF HYPERTENSION WITH A BP OF 173/94 @ 1507. PT IS ON TELE AND HAD SINUS TACHYCARDIA ACCORDING TO EARLENE DUMONT RN.
--- NOTE | 2018-07-06 18:09 | NUR ---
NAUSEA, MUSCLE SPASMS DR. SCRUGGS NOTIFIED THAT PT IS HAVING NAUSEA AND FEELS UNABLE TO TAKE HER PO K-PHOS. ORDER RECIEVED FOR IV K-PHOS. HE WAS ALSO NOTIFIED THAT PT HAS COMPLAINED OF MUSCLE SPASMS THIS AFTERNOON. SPASMS TREATED WITH ROBAXIN. COMMUNICATED SERUM CALCIUM OF 7.[address] SCRUGGS. WILL CONTINUE TO MONITOR.
--- NOTE | 2018-07-06 18:12 | NUR ---
SHIFT SUMMARY PT HAS COMPLAINED OF A HEADACHE OCCASIONALLY T/O THE SHIFT. PAIN HAS BEEN MANAGED WITH ULTRAM. PT ON TELE, SINUS TACH. PT REPORTS SOME NAUSEA THIS SHIFT, TREATED WITH ZOFRAN AND REGLAN. PT IS A SBA WHEN OOB. BP ELEVATED THIS AFTERNOON, HYDRALAZINE REDUCED BP TO WNL. VSS. WILL MONITOR UNTIL REPORT TO ONCOMING RN.
--- NOTE | 2018-07-07 01:00 | NUR ---
RT CALLED NURSING AFTER WITNESSING PT HAVING SEIZURE LIKE ACTIVITY DURING BREATHING TREATMENT. NURSING WITNESSED PT POSTURING WITH SPASIC MOVEMENTS NOTED. RAPID RESPONSE CALLED AT 2350HRS. AFTER SEVERAL MINUTES PT IS ABLE TO TRACK VOICES AND FOLLOW COMMANDS. AT 2355 CBG IS 131, ELEVATED BP NOTED AT 190/104, AND HR OF 149 PER TELE. AT 0010 VS IMPROVING WITH HR OF 125, AND BP OF 156/90. AT 0020 GIVEN ZOFRAN FOR N/V, VOICES RELIEF. TRANSPORTED TO IMAGING BY NURSING FOR CT SCAN OF HEAD WITHOUT CONTRAST AND RETURNED TO ROOM, TOLERATED WELL. WILL CONTINNUE TO MONITOR.
--- NOTE | 2018-07-07 02:30 | NUR ---
RECEIVED CALL FROM DR. HENRY BOOTHING PT'S HEAD CT, RESULTS READ TO HIM. ORDERS RECEIVED TO DRAW AM LABS NOW TO CHECK ELECTROLYTES AND IF MAG LEVEL WAS BELOW 2 TO INFUSE 2GM OF MAG FOR REPLACEMENT. TELEPHONE ORDER READ BACK AND VERBALIZED. SAFETY MEASURES IN PLACE. WILL CONTINUE TO MONITOR.
[2018-07-07 03:06] LABS: Albumin, Blood 3.5 g/dL (3.4-5.0); Anion Gap 8 mmol/L (6-16); Blood Urea Nitrogen 8 mg/dL (8-24); CO2, Blood 23 mmol/L (21-32); Calcium, Blood 8.3 mg/dL (8.5-10.1); Chloride, Blood 103 mmol/L (98-108); Creatinine, Blood 0.89 mg/dL (0.40-1.00); Glomerular Filtration Rate >60 (60-); Glucose, Blood 152 mg/dL (70-99); Magnesium, Blood 1.7 mg/dL (1.6-2.4); Phosphorus, Blood 2.4 mg/dL (2.5-4.9); Potassium, Blood 4.3 mmol/L (3.5-5.5); Sodium, Blood 134 mmol/L (136-145)
--- NOTE | 2018-07-07 03:15 | NUR ---
LABS RESULTED, MAG LEVEL OF 107 NOTED. ORDER PLACED FOR MAG PER MD INSTRUCTIONS. WILL CONTINUE TO MONITOR.
--- NOTE | 2018-07-07 06:27 | NUR ---
SHIFT SUMMARY LYING IN SEMI FOWLERS WITH EYES CLOSED. NO FURTHER CHANGES SINCE START OF SHIFT. DENIES PAIN, DISCOMFORT, OR FURTHER NEEDS AT THIS TIME. WILL GIVE HAND OFF TO ONCOMING SHIFT USING SBAR.
--- NOTE | 2018-07-07 17:51 | NUR ---
Per admit trigger, I met with Mrs. Galeana to offer prayer and spiritual drug and alcohol counsellor. She admits she is very worried and was appreciaitve of prayer and assurance of God's love and attention. I will remain available.
--- NOTE | 2018-07-07 18:21 | NUR ---
SHIFT SUMMARY PT WAS DROWSY FIRST HALF OF SHIFT BUT DID PERK UP SECOND HALF. STRUGGLED WITH NAUSEA T/O SHIFT BUT DID GET SOME RELIEF FROM PHENERGAN AFTER MD CALLED AND DISCUSSED PT'S STATUS: HAS BEEN HAVING HOT/COLD SPELLS WITH CHILLS, DIAPHORETIC AT TIMES, SLIGHT TREMORS NOTED AT TIMES, AND HAS NOT TAKEN IN BUT FEW SIPS OF ROMEL MIST. NEW ORDERS RECEIVED. NO S/S OF SEIZURE ACTIVITY NOTED.
[2018-07-08 06:03] LABS: Hematocrit 32.8 % (33.0-51.0); Hemoglobin 10.4 g/dL (11.5-16.0); Mean Corpuscular HGB 30.3 pg (26.0-34.0); Mean Corpuscular HGB Conc 31.7 g/dL (31.5-36.5); Mean Platelet Volume 9.3 fL (9.1-12.4); Platelet Count 323 K/mm3 (150-400); RDW Coefficient Variation 15.2 % (11.7-14.2); RDW Standard Deviation 52.7 fL (35.1-46.3); Red Blood Cell Count 3.43 M/mm3 (3.80-5.20); White Blood Cell Count 7.63 K/mm3 (4.00-11.30)
[2018-07-08 06:04] LABS: Mean Corpuscular Volume 96 fL (80-100)
[2018-07-08 06:19] LABS: Albumin, Blood 3.2 g/dL (3.4-5.0); Anion Gap 6 mmol/L (6-16); Blood Urea Nitrogen 6 mg/dL (8-24); Bun/Creatinine Ratio 5.2 (12.0-20.0); CO2, Blood 26 mmol/L (21-32); Chloride, Blood 108 mmol/L (98-108); Creatinine, Blood 1.16 mg/dL (0.40-1.00); Glomerular Filtration Rate 49 (60-); Glucose, Blood 84 mg/dL (70-99); Magnesium, Blood 2.2 mg/dL (1.6-2.4); Phosphorus, Blood 3.3 mg/dL (2.5-4.9); Potassium, Blood 4.3 mmol/L (3.5-5.5); Sodium, Blood 140 mmol/L (136-145)
[2018-07-08] MEDS ORDERED: AMLO5 PO (11:27)
--- NOTE | 2018-07-08 13:23 | NUR ---
DISCHARGE. LEFT VIA WHEELCHAIR TO HOME. DISCHARGE INSTRUCTIONS GONE OVER WITH DAUGHTER AND PATIENT. POSSESIONS IN HAND PATIENT LEFT. POWERGLIDE REMOVED BEFORE DISCHARGE.
== END 2018-07-08 13:18 | disposition home or self-care (01) | DRG 392 ==
LOC: ER 11:16 → ERHOLD 15:50 → SURS 18:25 → ICUE 18:40 → SURS 07-05 15:12
PROVIDERS: Emergency Medicine; Internal Medicine; ADMIT Family Medicine
DX: K52.9 Noninfective gastroenteritis and colitis, unspecified (principal); N17.9 Acute kidney failure, unspecified; E87.1 Hypo-osmolality and hyponatremia; E87.2 Acidosis; Z86.73 Personal history of transient ischemic attack (TIA), and cerebral infarction without residual deficits; F10.20 Alcohol dependence, uncomplicated; J44.9 Chronic obstructive pulmonary disease, unspecified; Z87.891 Personal history of nicotine dependence; M79.7 Fibromyalgia; M19.90 Unspecified osteoarthritis, unspecified site; E03.9 Hypothyroidism, unspecified; I25.2 Old myocardial infarction; I12.9 Hypertensive chronic kidney disease with stage 1 through stage 4 chronic kidney disease, or unspecified chronic kidney disease; N18.3 Chronic kidney disease, stage 3 (moderate); E78.5 Hyperlipidemia, unspecified; K21.9 Gastro-esophageal reflux disease without esophagitis; I16.0 Hypertensive urgency; R06.03 Acute respiratory distress; E86.0 Dehydration; I95.9 Hypotension, unspecified; E87.6 Hypokalemia; F41.8 Other specified anxiety disorders; E83.42 Hypomagnesemia; E83.39 Other disorders of phosphorus metabolism; R56.9 Unspecified convulsions; I25.10 Atherosclerotic heart disease of native coronary artery without angina pectoris; E78.00 Pure hypercholesterolemia, unspecified
CPT/HCPCS: 36415; 36600; 70450; 71046; 74176; 80053; 80069; 81001; 82010; 82140; 82330; 82803; 82947; 83605; 83690; 83735; 85025; 85027; 87040; 87324; 87507; 93005; 93010; 93306; 94640; 94760; 95819; 96361; 96365; 96372-59; 96375; 99285-25; C1751; C9113; G0480; J0360; J1650; J2060; J2310; J2405; J2550; J2765; J3010; J3411; J3475; J3480; J7030; J7040; J7042; J7060; J7120; P9612

== ENCOUNTER 2018-12-23 12:54 | Inpatient (IN) | payer MEDICARE, OTHER ==
[~2018-12-23] VITALS: Ht 152.4 cm; Wt 52.2 kg
[2018-12-23 15:25] LABS: BASOPHILS ABSOLUTE AUTO 0.03 K/mm3 (0.00-0.23); BASOPHILS PERCENT AUTO 0 % (0-2); EOSINOPHILS ABSOLUTE AUTO 0.02 K/mm3 (0.00-0.68); EOSINOPHILS PERCENT AUTO 0 % (0-6); Hematocrit 52.2 % (33.0-51.0); Hemoglobin 17.8 g/dL (11.5-16.0); IMMATURE GRAN ABSOLUTE AUTO 0.03 K/mm3 (0.00-0.10); IMMATURE GRAN PERCENT AUTO 0 % (0-1); LYMPHOCYTES ABSOLUTE AUTO 1.71 K/mm3 (0.84-5.20); LYMPHOCYTES PERCENT AUTO 18 % (21-46); MONOCYTES ABSOLUTE AUTO 0.56 K/mm3 (0.16-1.47); MONOCYTES PERCENT AUTO 6 % (4-13); Mean Corpuscular HGB 32.2 pg (26.0-34.0); Mean Corpuscular HGB Conc 34.1 g/dL (31.5-36.5); Mean Corpuscular Volume 95 fL (80-100); Mean Platelet Volume 10.2 fL (9.1-12.4); NEUTROPHILS ABSOLUTE AUTO 7.23 K/mm3 (1.96-9.15); NEUTROPHILS PERCENT AUTO 76 % (41-73); Platelet Count 431 K/mm3 (150-400); RDW Coefficient Variation 12.7 % (11.7-14.2); RDW Standard Deviation 44.8 fL (35.1-46.3); Red Blood Cell Count 5.52 M/mm3 (3.80-5.20); White Blood Cell Count 9.58 K/mm3 (4.00-11.30)
[2018-12-23 15:35] LABS: Albumin/Globulin Ratio 0.9 (0.8-1.8); Beta-hydroxybutyrate 15.6 mg/dL (0.2-2.8); Bilirubin, Total 1.1 mg/dL (0.1-1.0); Bun/Creatinine Ratio 9.9 (12.0-20.0); Calcium, Blood 9.2 mg/dL (8.5-10.1); Creatinine, Blood 1.11 mg/dL (0.40-1.00); Globulin, Blood 4.6 g/dL (2.2-4.0); Potassium, Blood 3.6 mmol/L (3.5-5.5); Total Protein, Blood 8.6 g/dL (6.4-8.2)
[2018-12-23] MEDS ORDERED: Pantoprazole So20 MG PO (16:10)
[2018-12-23] MEDS ORDERED: FLUTICASONE-SA1 EAC4 INH (16:10)
[2018-12-23] MEDS ORDERED: TIOT18 INH (16:10)
[2018-12-23] MEDS ORDERED: Flonase 0.05% N16 GM (16:10)
[2018-12-23] MEDS ORDERED: PREG100 PO (16:11)
[2018-12-23 16:17] LABS: Source, Urine Catheter
[2018-12-23 16:33] LABS: Blood, Urine 1+ (Neg); Glucose Qualitative, Urine Neg (Neg); Ketones, Urine 3+ (Neg); Leukocyte Esterase, Urine 1+ (Neg); Nitrite, Urine Neg (Neg); Protein, Urine 3+ (Neg); Specific Gravity, Urine 1.015 (1.003-1.022); Urobilinogen, Urine 1+ (Normal)
[2018-12-23] MEDS ORDERED: PROLIA60 MG/1 ML SC (16:41)
[2018-12-23 16:50] LABS: Bilirubin, Urine 1+ (Neg)
[2018-12-23 16:53] LABS: Appearance, Urine Clear (Clear); Color, Urine Yellow (P-Yellow)
[2018-12-23 16:55] LABS: Squamous Epithelial Cells Rare /hpf (Few)
[2018-12-23 16:56] LABS: Bacteria Few /hpf
--- NOTE | 2018-12-23 17:50 | NUR ---
Assumed care of patient Pt transferred from ED, received report from JAMES Mcneal. Pt arrived via gurney and transferred independently from [facility] to bed. Pt oriented to room and call light, settled down. Pt feeling nauseous, medicated for nausea x 1. Bed alarm on d/t reports of falls at home per patient from "loss of balance." Denies SOB. C/o pain in abdomen r/t N/V at home. Call light in reach and bed lowest position.
[2018-12-23] MEDS ORDERED: POTA8 PO (18:11)
[2018-12-23] MEDS ORDERED: MAGNESIUM OXID500 MG PO (18:11)
--- NOTE | 2018-12-23 22:38 | NUR ---
HYPERTENSION PT BP 186/102 HR 113. PLACED CALL TO ORION MULLEN, ORDERS 10 MG IV LABETALOL AND RECHECK IN 30 MINS. AT RECHECK, BP 196/115 HR 100. CALLED ORION MULLEN TO REPORT VS. ORDERS 10 MG IV HYDRALAZINE NOW AND RECHECK IN 30 MINS. AT RECHECK, BP 159/80 HR 99. ORION MULLEN OKAY WITH VS AT THIS TIME, NO FURTHER ORDERS. WILL CONT TO MONITOR.
[2018-12-24 04:42] LABS: BASOPHILS ABSOLUTE AUTO 0.03 K/mm3 (0.00-0.23); BASOPHILS PERCENT AUTO 0 % (0-2); EOSINOPHILS ABSOLUTE AUTO 0.12 K/mm3 (0.00-0.68); EOSINOPHILS PERCENT AUTO 1 % (0-6); Hematocrit 44.5 % (33.0-51.0); Hemoglobin 14.6 g/dL (11.5-16.0); IMMATURE GRAN ABSOLUTE AUTO 0.04 K/mm3 (0.00-0.10); IMMATURE GRAN PERCENT AUTO 0 % (0-1); LYMPHOCYTES ABSOLUTE AUTO 3.46 K/mm3 (0.84-5.20); LYMPHOCYTES PERCENT AUTO 33 % (21-46); MONOCYTES ABSOLUTE AUTO 1.17 K/mm3 (0.16-1.47); MONOCYTES PERCENT AUTO 11 % (4-13); Mean Corpuscular HGB 31.7 pg (26.0-34.0); Mean Corpuscular HGB Conc 32.8 g/dL (31.5-36.5); Mean Corpuscular Volume 97 fL (80-100); Mean Platelet Volume 9.6 fL (9.1-12.4); NEUTROPHILS PERCENT AUTO 54 % (41-73); Platelet Count 323 K/mm3 (150-400); RDW Coefficient Variation 12.8 % (11.7-14.2); RDW Standard Deviation 45.7 fL (35.1-46.3); White Blood Cell Count 10.42 K/mm3 (4.00-11.30)
[2018-12-24 05:03] LABS: Albumin, Blood 3.1 g/dL (3.4-5.0); Anion Gap 7 mmol/L (6-16); Blood Urea Nitrogen 8 mg/dL (8-24); Bun/Creatinine Ratio 8.5 (12.0-20.0); CO2, Blood 31 mmol/L (21-32); Calcium, Blood 7.9 mg/dL (8.5-10.1); Chloride, Blood 100 mmol/L (98-108); Creatinine, Blood 0.94 mg/dL (0.40-1.00); Glomerular Filtration Rate >60 (60-); Glucose, Blood 78 mg/dL (70-99); Phosphorus, Blood 2.1 mg/dL (2.5-4.9); Sodium, Blood 138 mmol/L (136-145)
--- NOTE | 2018-12-24 05:41 | NUR ---
SHIFT SUMMARY PT HAS BEEN INTERMITTENLY HYPERTENSIVE TONIGHT, SEE PRIOR NOTE. 10 MG IV HYDRALAZINE GIVEN TWICE, 10 MG IV LABETALOL GIVEN ONCE. BP STABLE AT THIS TIME. TELE IN PLACE; NO EVENTS; SINUS TACH @ 104 PER TRANSMITTER TESTER. PT HAS HAD NAUSEA, NO VOMITING. NAUSEA BEING MANAGED WITH ZOFRAN, REGLAN, AND COMPAZINE. PRN PHENERGAN ALSO AVAILABLE. LR RUNNING @ 150 ML/HR. IV LEVAQUIN GIVEN PER PHARMACY. PT IN CONTACT FOR R/O C DIFF, STOOL SAMPLE NEEDED. RESP E/U ON RA. WILL CONT TO MONITOR AND PROVIDE CARE UNTIL PRESUMED BY ONCOMING RN.
[2018-12-24 09:05] LABS: Magnesium, Blood 1.4 mg/dL (1.6-2.4); Troponin I 0.103 ng/mL (0.000-0.040)
--- NOTE | 2018-12-24 12:59 | NUR ---
12/24/18 1258 [place] History, Chart, Medications and Allergies reviewed before start of procedure. PATIENT CONFIRMS NPO STATUS AND AGREES WITH SCHEDULED PROCEDURE. MONITOR INTACT WITH CONTINUOUS PULSE OXIMETRY AND INTERMITTENT BP. O2 VIA N/C INTACT THROUGHOUT SEDATION/PROCEDURE. 3-LEAD EKG REVIEWED WITH PHYSICIAN PRIOR TO START OF PROCEDURE. PATIENT DETERMINED TO BE ASA APPROPRIATE FOR PROPOFOL SEDATION PRIOR TO START OF PROCEDURE BY DR. PENALOZA '
--- NOTE | 2018-12-24 13:07 | NUR ---
DIFFICULT IV START. IV STARTED DURING PROCEDURE.
[2018-12-24 14:51] LABS: Stool Occult Blood Guaiac 1 Pos (Neg)
--- NOTE | 2018-12-24 17:16 | NUR ---
SUMMARY PT IS A/O X4, PLEASANT AFFECT. UP SBA TO BSC. SHE STATE WEAKNESS/FATIGUE. THIS AM STATE NAUSEA, PRN ZOFRAN GIVEN FOR RELIEF. DX SEPSIS, LR INFUSING @ 150 ML/HR, LAST LACTIC ACID 2.1, K+ & PHOS LOW THIS AM, DR ORDER IV KPHOS. THISA FTERNOON MG LEVEL LOW, DR ORDER MAG RIDER. GI CONSULT THIS AM DR PENALOZA, SHE HAD EGD THIS AM, UNREMARKABLE/SERVICE LINE COORDINATOR. DIET FL, ADV STERLING. TROP SOMEWHAT ELEVATED, LAST 0.09, DR AWARE. TELE MX REPORT NSR w HR 60-70'S.
[2018-12-25 04:47] LABS: BASOPHILS ABSOLUTE AUTO 0.04 K/mm3 (0.00-0.23); BASOPHILS PERCENT AUTO 0 % (0-2); EOSINOPHILS ABSOLUTE AUTO 0.37 K/mm3 (0.00-0.68); EOSINOPHILS PERCENT AUTO 4 % (0-6); Hematocrit 36.8 % (33.0-51.0); Hemoglobin 12.3 g/dL (11.5-16.0); IMMATURE GRAN ABSOLUTE AUTO 0.03 K/mm3 (0.00-0.10); IMMATURE GRAN PERCENT AUTO 0 % (0-1); LYMPHOCYTES ABSOLUTE AUTO 4.32 K/mm3 (0.84-5.20); LYMPHOCYTES PERCENT AUTO 41 % (21-46); MONOCYTES ABSOLUTE AUTO 1.09 K/mm3 (0.16-1.47); MONOCYTES PERCENT AUTO 10 % (4-13); Mean Corpuscular HGB 31.8 pg (26.0-34.0); Mean Corpuscular HGB Conc 33.4 g/dL (31.5-36.5); Mean Corpuscular Volume 95 fL (80-100); Mean Platelet Volume 9.7 fL (9.1-12.4); NEUTROPHILS ABSOLUTE AUTO 4.64 K/mm3 (1.96-9.15); NEUTROPHILS PERCENT AUTO 44 % (41-73); Platelet Count 246 K/mm3 (150-400); RDW Coefficient Variation 13.1 % (11.7-14.2); RDW Standard Deviation 45.6 fL (35.1-46.3); Red Blood Cell Count 3.87 M/mm3 (3.80-5.20); White Blood Cell Count 10.49 K/mm3 (4.00-11.30)
[2018-12-25 05:12] LABS: Albumin, Blood 2.7 g/dL (3.4-5.0); Anion Gap 6 mmol/L (6-16); Blood Urea Nitrogen 5 mg/dL (8-24); Bun/Creatinine Ratio 5.3 (12.0-20.0); CO2, Blood 29 mmol/L (21-32); Calcium, Blood 7.7 mg/dL (8.5-10.1); Chloride, Blood 102 mmol/L (98-108); Creatinine, Blood 0.94 mg/dL (0.40-1.00); Glomerular Filtration Rate >60 (60-); Glucose, Blood 75 mg/dL (70-99); Magnesium, Blood 1.5 mg/dL (1.6-2.4); Phosphorus, Blood 2.2 mg/dL (2.5-4.9); Potassium, Blood 3.1 mmol/L (3.5-5.5); Sodium, Blood 137 mmol/L (136-145)
--- NOTE | 2018-12-25 06:52 | NUR ---
SHIFT SUMMARY PT IS A 73 Y/O FEMALE, ADMITTED FOR SEPSIS. SHE IS A&O X 3, AND A SBA TO THE BS. PT REPORTED INCREASED CHRONIC NECK PAIN THROUGH THE NIGHT, AND WAS MEDICATED X2 WITH TRAMADOL AND ONCE WITH TYLENOL WITH MINIMAL RELIEF. NO COMPLAINTS OF ABD PAIN, N/V. VITAL SIGNS STABLE. NO OTHER ACUTE CHANGES IN PT CONDITION NOTED. WILL CONTINUE TO MONITOR AND TREAT PER EMAR UNTIL HAND OFF TO DAY SHIFT RN.
[2018-12-25] MEDS ORDERED: AMLO10 PO (10:43)
[2018-12-25] MEDS ORDERED: ONDA4ODT MM (10:44)
--- NOTE | 2018-12-25 13:20 | NUR ---
PT DISCHARGED THE PT VERBALIZED UNDERTANDING OF THE DC INSTRUCTIONS, THE PTS PRESCRIPTIONS WERE FAXED TO [facility] REQUESTED, THE PT WAS GIVEN ORAL K-PHOS BEFORE DC ORDERED. THE PT APPEARED TO BE BREATHING EASILY, THE PT WAS TRANSFERED VIA WHEELCHAIR ACCOMPANIED BY THE INDIRECT FIRE INFANTRYMAN, THE PT WAS A/OX3
== END 2018-12-25 12:20 | disposition home or self-care (01) | DRG 872 ==
LOC: ER 12:54 → MEDS 16:41
PROVIDERS: Internal Medicine; Internal Medicine Gastroenterology; Nurse Practitioner Acute Care; ADMIT Internal Medicine
PROC: 0DJ08ZZ Inspection of Upper Intestinal Tract, Via Natural or Artificial Opening Endoscopic (ICD-10-PCS; principal; 2018-12-24 13:00)
DX: A41.9 Sepsis, unspecified organism (principal); E87.2 Acidosis; J44.9 Chronic obstructive pulmonary disease, unspecified; R11.2 Nausea with vomiting, unspecified; E86.0 Dehydration; G89.29 Other chronic pain; E87.6 Hypokalemia; E83.39 Other disorders of phosphorus metabolism; I12.9 Hypertensive chronic kidney disease with stage 1 through stage 4 chronic kidney disease, or unspecified chronic kidney disease; N18.3 Chronic kidney disease, stage 3 (moderate); E78.5 Hyperlipidemia, unspecified; I73.9 Peripheral vascular disease, unspecified; M79.7 Fibromyalgia; I25.10 Atherosclerotic heart disease of native coronary artery without angina pectoris; M19.90 Unspecified osteoarthritis, unspecified site; E03.9 Hypothyroidism, unspecified; Z86.73 Personal history of transient ischemic attack (TIA), and cerebral infarction without residual deficits; I25.2 Old myocardial infarction; Z87.891 Personal history of nicotine dependence; Z88.6 Allergy status to analgesic agent; Z88.5 Allergy status to narcotic agent; Z88.8 Allergy status to other drugs, medicaments and biological substances
CPT/HCPCS: 36415; 71045; 80053; 80069; 81001; 82010; 82272; 82947; 83605; 83690; 83735; 84484; 85025; 87040; 87086; 87324; 87493; 93005; 93010; 94640; 94760; 96361; 96374; 96375; 99285-25; A9270; C9113; J0360; J0780; J1650; J1956; J2405; J2704; J2765; J3010; J3475; J7050; J7060; J7120; P9612

== ENCOUNTER → 2019-05-14 | Outpatient (CLI) | payer MEDICARE, OTHER ==
[~2019-05-14] MED LIST changes: +AMLO10 PO; +FLUTICASONE-SA1 EAC4 INH; +Flonase 0.05% N16 GM; +MAGNESIUM OXID500 MG PO; +POTA8 PO; +PROLIA60 MG/1 ML SC; +Pantoprazole So20 MG PO
[2019-05-14 13:07] LABS: Bilirubin, Urine Neg (Neg); Blood, Urine Neg (Neg); Glucose Qualitative, Urine Neg (Neg); Ketones, Urine Neg (Neg); Leukocyte Esterase, Urine Neg (Neg); Nitrite, Urine Neg (Neg); Protein, Urine Neg (Neg); Specific Gravity, Urine 1.005 (1.003-1.022); Urobilinogen, Urine NORM (Normal); pH, Urine 6.5 (5.0-8.0)
[2019-05-14 13:30] LABS: Appearance, Urine Clear (Clear); Color, Urine Yellow (P-Yellow)
== END | disposition home or self-care (01) ==
LOC: LAB SHORT 12:06 → LAB 12:06 → LAB FUT 05-12 16:35
DX: I95.9 Hypotension, unspecified (principal); R41.0 Disorientation, unspecified
CPT/HCPCS: 81003

== ENCOUNTER 2020-01-16 20:55 | Emergency (ER) | payer MEDICARE, OTHER ==
[~2020-01-16] VITALS: Ht 152.4 cm; Wt 52.2 kg
[2020-01-16 21:34] LABS: BASOPHILS ABSOLUTE AUTO 0.07 K/mm3 (0.00-0.23); BASOPHILS PERCENT AUTO 1 % (0-2); EOSINOPHILS PERCENT AUTO 2 % (0-6); Hematocrit 44.9 % (33.0-51.0); Hemoglobin 15.1 g/dL (11.5-16.0); IMMATURE GRAN ABSOLUTE AUTO 0.03 K/mm3 (0.00-0.10); IMMATURE GRAN PERCENT AUTO 0 % (0-1); LYMPHOCYTES ABSOLUTE AUTO 4.07 K/mm3 (0.84-5.20); LYMPHOCYTES PERCENT AUTO 34 % (21-46); MONOCYTES PERCENT AUTO 9 % (4-13); Mean Corpuscular HGB 31.7 pg (26.0-34.0); Mean Corpuscular HGB Conc 33.6 g/dL (31.5-36.5); Mean Corpuscular Volume 94 fL (80-100); Mean Platelet Volume 9.7 fL (9.1-12.4); NEUTROPHILS ABSOLUTE AUTO 6.46 K/mm3 (1.96-9.15); NEUTROPHILS PERCENT AUTO 55 % (41-73); Platelet Count 357 K/mm3 (150-400); RDW Coefficient Variation 11.4 % (11.7-14.2); RDW Standard Deviation 39.6 fL (35.1-46.3); Red Blood Cell Count 4.76 M/mm3 (3.80-5.20); White Blood Cell Count 11.83 K/mm3 (4.00-11.30)
[2020-01-16 21:47] LABS: Source, Urine Catheter
[2020-01-16 21:50] LABS: Alanine Aminotransfer (ALT/SGP 17 U/L (12-78); Albumin, Blood 3.9 g/dL (3.4-5.0); Alk Phos 76 U/L (50-136); Anion Gap 8 mmol/L (6-16); Aspartate Aminotrans (AST/SGOT 24 U/L (12-37); Bilirubin, Total 0.7 mg/dL (0.1-1.0); Blood Urea Nitrogen 19 mg/dL (8-24); Bun/Creatinine Ratio 15.8 (12.0-20.0); CO2, Blood 26 mmol/L (21-32); Calcium, Blood 10.2 mg/dL (8.5-10.1); Chloride, Blood 104 mmol/L (98-108); Ethanol (Alcohol), Blood, Med <3 mg/dL; Glomerular Filtration Rate 47 (60-); Glucose, Blood 164 mg/dL (70-99); Potassium, Blood 3.6 mmol/L (3.5-5.5); Sodium, Blood 138 mmol/L (136-145); Total Protein, Blood 7.9 g/dL (6.4-8.2)
[2020-01-16 21:51] LABS: Blood, Urine 1+ (Neg); Glucose Qualitative, Urine Neg (Neg); Ketones, Urine 1+ (Neg); Leukocyte Esterase, Urine 1+ (Neg); Nitrite, Urine Neg (Neg); Protein, Urine 3+ (Neg); Urobilinogen, Urine 1+ (Normal)
[2020-01-16 22:02] LABS: Appearance, Urine Clear (Clear); Bilirubin, Urine 1+ (Neg); Color, Urine Yellow (P-Yellow)
[2020-01-16 22:03] LABS: Amorphous Light (0-Heavy); Bacteria Rare /hpf; Hyaline Casts 50-100 /lpf (0-2); Mucus Light (0-Heavy); Red Blood Cells, Urine 0-2 /hpf (0-2); Squamous Epithelial Cells Not Seen /hpf (Few); White Blood Cells, Urine 0-2 /hpf (0-5)
[2020-01-16] MEDS ORDERED: DULOXETINE HCL60 M1 PO (22:23)
[2020-01-18] MEDS ORDERED: FLUTICASONE-SA1 EAC9 INH (11:57)
[2020-01-18] MEDS ORDERED: MEGESTROL400 MG/13 PO (11:57)
== END 2020-01-16 22:43 | disposition home or self-care (01) ==
LOC: ER 20:55
PROVIDERS: Emergency Medicine
DX: S09.90XA Unspecified injury of head, initial encounter (principal); I11.0 Hypertensive heart disease with heart failure; E78.5 Hyperlipidemia, unspecified; N18.9 Chronic kidney disease, unspecified; J44.9 Chronic obstructive pulmonary disease, unspecified; I25.10 Atherosclerotic heart disease of native coronary artery without angina pectoris; I50.9 Heart failure, unspecified; F32.9 Major depressive disorder, single episode, unspecified; Z86.73 Personal history of transient ischemic attack (TIA), and cerebral infarction without residual deficits; Z87.891 Personal history of nicotine dependence; Z79.899 Other long term (current) drug therapy; Z88.6 Allergy status to analgesic agent; Z88.5 Allergy status to narcotic agent; Z88.8 Allergy status to other drugs, medicaments and biological substances; W01.10XA Fall on same level from slipping, tripping and stumbling with subsequent striking against unspecified object, initial encounter
CPT/HCPCS: 36415; 51701; 70450; 72125; 80053; 81001; 85025; 93005; 93010; 99284-25; G0480; J7030

== ENCOUNTER 2020-02-01 19:33 | Emergency (ER) | payer MEDICARE, OTHER ==
[~2020-02-01] VITALS: Ht 152.4 cm; Wt 49.9 kg
[~2020-02-01 19:33] MED LIST changes: +Aspir 8181 MG PO; +DULOXETINE HCL60 M1 PO; +FLUTICASONE-SA1 EAC9 INH; +FOLBIC PO; +MEGESTROL400 MG/13 PO; +QUET25 PO; +Seroquel Xr50 MG PO
[2020-02-01 21:21] LABS: BASOPHILS ABSOLUTE AUTO 0.08 K/mm3 (0.00-0.23); BASOPHILS PERCENT AUTO 1 % (0-2); EOSINOPHILS PERCENT AUTO 2 % (0-6); Hematocrit 37.4 % (33.0-51.0); Hemoglobin 12.6 g/dL (11.5-16.0); IMMATURE GRAN ABSOLUTE AUTO 0.05 K/mm3 (0.00-0.10); IMMATURE GRAN PERCENT AUTO 0 % (0-1); LYMPHOCYTES PERCENT AUTO 32 % (21-46); MONOCYTES ABSOLUTE AUTO 1.13 K/mm3 (0.16-1.47); MONOCYTES PERCENT AUTO 9 % (4-13); Mean Corpuscular HGB 31.7 pg (26.0-34.0); Mean Corpuscular HGB Conc 33.7 g/dL (31.5-36.5); Mean Corpuscular Volume 94 fL (80-100); Mean Platelet Volume 9.1 fL (9.1-12.4); NEUTROPHILS ABSOLUTE AUTO 7.27 K/mm3 (1.96-9.15); NEUTROPHILS PERCENT AUTO 56 % (41-73); Platelet Count 361 K/mm3 (150-400); RDW Coefficient Variation 11.5 % (11.7-14.2); RDW Standard Deviation 39.7 fL (35.1-46.3); Red Blood Cell Count 3.97 M/mm3 (3.80-5.20); White Blood Cell Count 12.93 K/mm3 (4.00-11.30)
[2020-02-01 21:39] LABS: Alanine Aminotransfer (ALT/SGP 15 U/L (12-78); Albumin, Blood 3.5 g/dL (3.4-5.0); Alk Phos 68 U/L (50-136); Anion Gap 4 mmol/L (6-16); Aspartate Aminotrans (AST/SGOT 14 U/L (12-37); Bilirubin, Total 0.2 mg/dL (0.1-1.0); Blood Urea Nitrogen 14 mg/dL (8-24); CO2, Blood 29 mmol/L (21-32); Calcium, Blood 9.9 mg/dL (8.5-10.1); Chloride, Blood 106 mmol/L (98-108); Creatinine, Blood 0.82 mg/dL (0.40-1.00); Globulin, Blood 3.6 g/dL (2.2-4.0); Glomerular Filtration Rate >60 (60-); Glucose, Blood 148 mg/dL (70-99); Potassium, Blood 3.8 mmol/L (3.5-5.5); Sodium, Blood 139 mmol/L (136-145); Total Protein, Blood 7.1 g/dL (6.4-8.2)
== END 2020-02-01 23:20 | disposition home or self-care (01) ==
LOC: ER 19:33
PROVIDERS: Emergency Medicine
DX: I13.0 Hypertensive heart and chronic kidney disease with heart failure and stage 1 through stage 4 chronic kidney disease, or unspecified chronic kidney disease (principal); E87.1 Hypo-osmolality and hyponatremia; E78.5 Hyperlipidemia, unspecified; N18.9 Chronic kidney disease, unspecified; J44.9 Chronic obstructive pulmonary disease, unspecified; I50.9 Heart failure, unspecified; I25.10 Atherosclerotic heart disease of native coronary artery without angina pectoris; E03.9 Hypothyroidism, unspecified; Z88.5 Allergy status to narcotic agent; Z88.8 Allergy status to other drugs, medicaments and biological substances; Z79.82 Long term (current) use of aspirin; Z79.899 Other long term (current) drug therapy; Z87.891 Personal history of nicotine dependence
CPT/HCPCS: 80053; 85025; 93005; 93010; 96374; 99283-25; J0360

== ENCOUNTER 2020-02-10 18:46 | Emergency (ER) | payer MEDICARE, OTHER ==
[~2020-02-10] VITALS: Ht 152.4 cm; Wt 49.4 kg
[2020-02-10 19:14] LABS: BASOPHILS ABSOLUTE AUTO 0.03 K/mm3 (0.00-0.23); BASOPHILS PERCENT AUTO 0 % (0-2); EOSINOPHILS ABSOLUTE AUTO 0.37 K/mm3 (0.00-0.68); EOSINOPHILS PERCENT AUTO 4 % (0-6); Hematocrit 37.7 % (33.0-51.0); Hemoglobin 12.6 g/dL (11.5-16.0); IMMATURE GRAN ABSOLUTE AUTO 0.02 K/mm3 (0.00-0.10); IMMATURE GRAN PERCENT AUTO 0 % (0-1); LYMPHOCYTES ABSOLUTE AUTO 4.03 K/mm3 (0.84-5.20); LYMPHOCYTES PERCENT AUTO 42 % (21-46); MONOCYTES ABSOLUTE AUTO 0.95 K/mm3 (0.16-1.47); MONOCYTES PERCENT AUTO 10 % (4-13); Mean Corpuscular HGB 31.7 pg (26.0-34.0); Mean Corpuscular HGB Conc 33.4 g/dL (31.5-36.5); Mean Corpuscular Volume 95 fL (80-100); Mean Platelet Volume 9.4 fL (9.1-12.4); NEUTROPHILS ABSOLUTE AUTO 4.11 K/mm3 (1.96-9.15); NEUTROPHILS PERCENT AUTO 43 % (41-73); Platelet Count 386 K/mm3 (150-400); RDW Coefficient Variation 11.7 % (11.7-14.2); RDW Standard Deviation 40.4 fL (35.1-46.3); Red Blood Cell Count 3.98 M/mm3 (3.80-5.20); White Blood Cell Count 9.51 K/mm3 (4.00-11.30)
[2020-02-10 19:26] LABS: Alanine Aminotransfer (ALT/SGP 16 U/L (12-78); Albumin, Blood 3.6 g/dL (3.4-5.0); Alk Phos 75 U/L (50-136); Anion Gap 8 mmol/L (6-16); Aspartate Aminotrans (AST/SGOT 18 U/L (12-37); Bilirubin, Total 0.4 mg/dL (0.1-1.0); Blood Urea Nitrogen 10 mg/dL (8-24); Bun/Creatinine Ratio 11.7 (12.0-20.0); CO2, Blood 27 mmol/L (21-32); Calcium, Blood 9.5 mg/dL (8.5-10.1); Chloride, Blood 104 mmol/L (98-108); Creatinine, Blood 0.86 mg/dL (0.40-1.00); Globulin, Blood 3.7 g/dL (2.2-4.0); Glomerular Filtration Rate >60 (60-); Glucose, Blood 123 mg/dL (70-99); Sodium, Blood 139 mmol/L (136-145); Total Protein, Blood 7.3 g/dL (6.4-8.2)
[2020-02-10] MEDS ORDERED: PRINIVIL10 MG PO (20:29)
== END 2020-02-11 00:02 | disposition home or self-care (01) ==
LOC: ER 18:46
PROVIDERS: Emergency Medicine
DX: I10 Essential (primary) hypertension (principal); Z79.899 Other long term (current) drug therapy; Z79.82 Long term (current) use of aspirin
CPT/HCPCS: 36415; 80053; 85025; 93005; 93010

== ENCOUNTER → 2021-09-13 | Outpatient (CLI) | payer MEDICARE, OTHER ==
[~2021-09-13] MED LIST changes: +PRINIVIL10 MG PO
== END | disposition home or self-care (01) ==
LOC: LAB SHORT 18:31 → LAB 18:31
DX: R30.0 Dysuria (principal)
CPT/HCPCS: 87086